=== PATIENT | male | born 1980 | race Caucasian/White ===

== ENCOUNTER 2017-03-12 12:26 | Emergency (ER) | payer OTHER ==
[2017-03-12 12:31] VITALS: BP 154/89
--- NOTE | 2017-03-12 14:47 | RAD ---
Indication: Right hand injury. 4 views of the right hand demonstrates no fracture. No other bone or joint abnormality is identified. IMPRESSION: No fracture of the right thumb or second digit is noted.
[2017-03-12] MEDS ORDERED: oxyCODONE/Acetamin 5/325 MG* TAB PO ONE (14:50)
--- NOTE | 2017-03-12 14:56 | ED ---
Upper Extremity Pain - HPI Summary HPI Summary: 36 male presents with complaints of right thumb pain after shutting in a shed door yesterday. Patient admits to swelling, bruising and some loss of ROM due to pain. Admits to tingling intermittently. Denies numbness. States he was unable to sleep due to pain. Took 800mg ibuprofen without relief. Has not tired anything else. Denies wrist or other finger pain. No other injuries or complaints at this time. - History of Current Complaint Chief Complaint: EDExtremityUpper Stated Complaint: PAIN IN HAND Time Seen by Provider: 03/12/17 14:03 Hx Obtained From: Patient Mechanism Of Injury: Blunt Trauma - shut in shed door hinge Onset/Duration: Started Days Ago, Traumatic, Worse Since Timing: Constant Severity Initially: Moderate Severity Currently: Moderate Pain Location: Hand - distal right thumb/lateral posterior hand, Finger - right thumb Character: Dull, Aching Aggravating Factor(s): Movement Associated Signs & Symptoms: Positive: Swelling, Bruising Related History: Dominant Hand Right - Allergies/Home Medications Allergies/Adverse Reactions: Allergies Allergy/AdvReac Type Severity Reaction Status Date / Time Ketorolac Tromethamine Allergy Intermediate Dizziness Verified 03/12/17 12:29 [From Toradol] Sulfa Drugs Allergy Intermediate Hives Verified 03/12/17 12:29 morphine IV AdvReac Mild Rash Uncoded 03/12/17 12:29 PMH/Surg Hx/FS Hx/Imm Hx Endocrine/Hematology History: Denies: Hx Diabetes, Hx Systemic Lupus Erythematosus, Hx Thyroid Disease Cardiovascular History: Denies: Hx Congestive Heart Failure, Hx Hypertension, Hx Pacemaker/ICD, Other Cardiovascular Problems/Disorders Respiratory History: Denies: Hx Asthma, Hx Chronic Obstructive Pulmonary Disease (COPD), Other Respiratory Problems/Disorders GI History: Reports: Hx Irritable Bowel, Hx Jaundice - WITH HEPATITIS C FLARE UPS, Other GI Disorders - GALL BLADDER ISSUES, CHOLECYSTECTOMY 2012 Denies: Hx Ulcer History: Denies: Hx Dialysis, Hx Renal Disease Musculoskeletal History: Reports: Other Musculoskeletal History - RIGHT KNEE PAIN FOR SEVERAL YEARS Denies: Hx Rheumatoid Arthritis Sensory History: Reports: Hx Contacts or Glasses - GLASSES Denies: Hx Cataracts, Hx Eye Injury, Hx Eye Prosthesis, Hx Glaucoma, Hx Macular Degeneration, Hx Vision Problem, Hx Deafness, Hx Hearing Aid, Hx Hearing Problem, Other Sensory Impairments Opthamlomology History: Reports: Hx Contacts or Glasses - GLASSES Denies: Hx Cataracts, Hx Eye Injury, Hx Eye Prosthesis, Hx Glaucoma, Hx Macular Degeneration, Hx Vision Problem, Other Sensory Impairments Neurological History: Reports: Other Neuro Impairments/Disorders - Hx bipolar disorder Psychiatric History: Reports: Hx Anxiety - CONTROLLED WITH MEDS, Hx Depression - "not really", Hx Panic Disorder, Hx Inpatient Treatment - [facility] with relapse and again February 2013 in [place], Hx Bipolar Disorder - [facility]osp at [place] Aug 2011 for 5 days, Hx Substance Abuse - [facility] [place] rel[place] and hosp again in february 2013 - Cancer History Hx Chemotherapy: No - Surgical History Surgery Procedure, Year, and Place: Cholecystectomy 05/10/13- [facility]; RIGHT KNEE SURGERY, 07/2015 Hx Anesthesia Reactions: No - Immunization History Date of Tetanus Vaccine: Unk Date of Influenza Vaccine: Fall 2011 Infectious Disease History: Yes Infectious Disease History: Denies: Hx Clostridium Difficile, Hx Hepatitis, Hx Human Immunodeficiency Virus (HIV), Hx Shingles, Hx Tuberculosis, Traveled Outside the [place] in Last 30 Days - Family History Known Family History: Positive: None - Social History Alcohol Use: None Substance Use Type: Reports: None Substance Use Comment - Amount & Last Used: last used 2011 Smoking Status (MU): Heavy Every Day Tobacco Smoker Type: Cigarettes Amount Used/How Often: 1/2 PK PER DAY Length of Time of Smoking/Using Tobacco: 15 YRS Have You Smoked in the Last Year: Yes Review of Systems Constitutional: Negative Cardiovascular: Negative Respiratory: Negative Positive: Arthralgia, Myalgia, Decreased ROM, Edema - right thumb, posterior hand Positive: Bruising - right thumb/posterior hand Neurological: Negative All Other Systems Reviewed And Are Negative: Yes Physical Exam Triage Information Reviewed: Yes Vital Signs On Initial Exam: Initial Vitals Temp Pulse Resp BP Pulse Ox 98.4 F 112 16 154/89 99 03/12/17 12:29 03/12/17 12:29 03/12/17 12:29 03/12/17 12:29 03/12/17 12:29 Vital Signs Reviewed: Yes Appearance: Positive: Well-Appearing, No Pain Distress, Well-Nourished Skin: Positive: Warm, Skin Color Reflects Adequate Perfusion, Dry, Erythema @ - and ecchymosis of right thumb and posteriod lateral hand. no open wounds. skin intact. Eyes: Positive: Normal ENT: Positive: Normal ENT inspection, Hearing grossly normal Neck: Positive: Supple, Nontender Respiratory/Lung Sounds: Positive: Clear to Auscultation, Breath Sounds Present Cardiovascular: Positive: Normal, RRR, Pulses are Symmetrical in both Upper and Lower Extremities - 2+ radial bilaterally Musculoskeletal: Positive: Limited @ - ROM at right thumb due to pain, is able to move, Pain @ - right thumb, posterior hand, Edema Right - thumb/posterior hand, Other - no crepitus or step off noted. edema and contusion over right thumb and hand. Negative: Interruption @ Neurological: Positive: Normal, Sensory/Motor Intact - sensation intact, Alert, Oriented to Person Place, Time, CN Intact II-III, Reflexes Intact, NV Bundle Intact Distally, Normal Gait Psychiatric: Positive: Normal Diagnostics - Vital Signs Vital Signs Temp Pulse Resp BP Pulse Ox 03/12/17 12:32 98.4 F 112 16 154/89 100 03/12/17 12:29 98.4 F 112 16 154/89 99 - Laboratory Lab Statement: Any lab studies that have been ordered have been reviewed, and results considered in the medical decision making process. - Radiology right hand Xray Interpretation: No Acute Changes - 4 views of the right hand demonstrates no fracture. No other bone or joint abnormality is identified. Radiology Interpretation Completed By: Radiologist Course/Dx - Course Course Of Treatment: given pain medication while in ED. X-ray obtained and negative. Given brace and pain management. Ice and rest. follow up ortho if pain persists or worsens. Aware of worsening signs and symptoms. - Diagnoses Differential Diagnosis/HQI/PQRI: Positive: Arthritis, Contusion, Fracture ( Closed), Hematoma, Strain, Sprain Provider Diagnoses: Contusion of right thumb, Strain of right thumb Discharge - Discharge Plan Condition: Stable Disposition: HOME Prescriptions: HYDROcodone/ACETAMIN 5-325 MG* [[place] 5-325 TAB*] 1 tab PO Q6H PRN #3 tab MDD 2 PRN Reason: Pain Ibuprofen TAB* [Motrin TAB* 800 MG] 800 mg PO Q6H #20 tab Patient Education Materials: Finger Sprain (ED), Contusion in Adults (ED) Forms: *Work Release Referrals: Bari Kelly NP [Primary Care Provider] - Charley Golden MD [Medical Doctor] - Additional Instructions: Take ibuprofen 800mg for pain and inflammation. If this is not working try taking Naproxen/Aleve. Ice your thumb 20 minutes on and 20 minutes off multiple times daily. Rest and wear brace until symptoms improve. Follow up with PCP and orthopedics if pain persists. Further imaging may be needed.
[2017-03-12] MEDS ORDERED: HYDROcodone/ACETAMIN 5-325 MG* 1 TAB PO ONE (15:03)
== END 2017-03-12 15:40 | disposition home or self-care (01) ==
LOC: ED 12:26
DX: S60.011A Contusion of right thumb without damage to nail, initial encounter (principal); S56.011A Strain of flexor muscle, fascia and tendon of right thumb at forearm level, initial encounter; W23.0XXA Caught, crushed, jammed, or pinched between moving objects, initial encounter; Y93.9 Activity, unspecified; Y92.9 Unspecified place or not applicable; F17.210 Nicotine dependence, cigarettes, uncomplicated
CPT/HCPCS: 99282; A9270-GY

== ENCOUNTER 2017-04-28 06:13 | Day surgery (SDC) | payer OTHER ==
--- NOTE | 2017-04-22 22:52 | HP ---
HISTORY AND PHYSICAL: DATE OF OFFICE VISIT: 04/22/17 DATE OF SURGERY: 04/28/17 SURGEON: Charley Golden MD PROCEDURE: Left knee arthroscopy. CHIEF COMPLAINT: Left knee pain. HISTORY OF PRESENT ILLNESS: Mr. Adan is a 36-year-old gentleman with continued left knee pain. He has had a 9/10 aching pain along the medial joint line as well as medial parapatellar region. H is pain has increased by standing all day, lifting heavy item, and prolonged working. Pain is decre ased when he rests. PAST MEDICAL HISTORY: 1. Bipolar disorder. 2. Anxiety. 3. Hypertension. PAST SURGICAL HISTORY: 1. Right knee arthroscopy with medial plica excision. 2. Cholecystectomy. MEDICATIONS: 1. Lexapro 20 mg 1 tab daily. 2. Chantix 0.5 mg 1 tablet daily x3 days. 3. Ibuprofen 800 mg 1 tablet q.8 hours as needed for pain. 4. Seroquel 400 mg. ALLERGIES: SULFA ANTIBIOTICS. FAMILY HISTORY: Father has heart disease and history of colon and bladder cancer. Mother's side has a history of diabetes. SOCIAL HISTORY: The patient lives in [place]. He smokes half a pack cigarettes x15 years. No alc ohol or recreational drug use. REVIEW OF SYSTEMS: General: The patient denies any fevers, chills, or night sweats. No known anes thesia problems. HEENT: The patient denies any headaches, lightheadedness, or syncopal episodes. Integumentary: The patient denies any abrasions, lesions, or open wounds. Cardio: The patient den ies any chest pain, palpitations, or edema. Pulmonary: The patient denies any shortness of breath with exertion, chronic cough, or COPD. GI: The patient denies any nausea, vomiting, diarrhea, or c onstipation. : The patient denies any nocturia, urinary frequency, urinary urgency, or history o f UTIs. MUSCULOSKELETAL: The patient admits to left knee pain. Neuro: The patient denies any par esthesias, numbness, or history of seizures or stroke. Endocrine: The patient denies any diabetes or thyroid issues. PHYSICAL EXAMINATION GENERAL: The patient is awake, alert, and oriented, in no acute distress. Appropriate mood and affe ct. PULMONARY: Lungs are clear to auscultation in all lung macdonald. No wheezes, rales, or rhonchi. CARDIO: Regular rate and rhythm. Normal S1 and S2. No appreciable S3 or S4. No murmurs, rubs, or gallops. No edema. ABDOMEN: Positive bowel sounds in all 4 quadrants. Soft and nontender to palpation. MUSCULOSKELETAL: Left lower extremity, the patient's skin is intact. No abrasions or open wounds. Mild effusion at the knee joint with tenderness to palpation along the medial joint line and medial parapatellar region. The patient has full extension to 0 and flexion to 120 degrees. No varus or valgus instability. He has a positive Apley's, negative Maribell's. 5/5 ankle dorsiflexion and alejandro ntarflexion. Full sensation to light touch and 2+ dorsalis pedis pulse. IMPRESSION: Medial plica with some synovitis without an obvious meniscal tear. PLAN: The patient will undergo an arthroscopy for removal of plica on 04/28/17. He will follow up i n the office in 10 to 14 days postop for suture removal. DEBORA HOLLOWAY [id number]/[facility] #: [id number]
[~2017-04-28 06:13] MED LIST: Dexamethasone IV* 4 MG/ML 1 ML (4 MG) IV SLOW PU ONE; Dexamethasone IV* 4 MG/ML 1 ML (4 MG) ONE; Famotidine IV* 10 MG/ML 2 ML (20 mg) IV ONE; Famotidine IV* 10 MG/ML 2 ML (20 mg) ONE; ceFAZolin 2 GM PREMIX(*) 2 GM/50 ML BAG IVPB ONE
[2017-04-28] MEDS ORDERED: Lidocaine 2% PF * 5 ML VIAL ONE (06:59)
[2017-04-28] MEDS ORDERED: Propofol* 10 MG/ML 20 ML BTL IV PUSH ONE (06:59)
[2017-04-28] MEDS ORDERED: fentaNYL* 50 MCG/ML 2 ML VIAL (100 MCG VIAL) ONE ×3 (06:59→08:35)
[2017-04-28] MEDS ORDERED: Midazolam* 1 MG/ML 5 ML VIAL (5 MG) ONE (07:00)
[2017-04-28] MEDS ORDERED: EPINEPHrine AMP 1 MG/ML ONE (07:11)
[2017-04-28] MEDS ORDERED: methylPREDNISolone ACETATE 80* 80 MG/ML 1 ML VIAL ONE (07:11)
[2017-04-28] MEDS ORDERED: Bupivacaine 0.5% SDV PF* 30 ML VIAL ONE (07:12)
[2017-04-28] MEDS ORDERED: HYDROcodone/ACETAMIN 5-325 MG* 1 TAB PO PRN (07:12)
[2017-04-28] MEDS ORDERED: oxyCODONE/Acetamin 5/325 MG* TAB PO PRN (07:12)
[2017-04-28] MEDS ORDERED: PROCHLORPERAZINE INJ 5 MG/ML 2 ML VIAL IV PRN (07:12)
[2017-04-28] MEDS ORDERED: Ondansetron INJ* 2 MG/ML VIAL ONE (07:39)
[2017-04-28] MEDS: fentaNYL* 50 MCG/ML 2 ML VIAL (100 MCG VIAL) IV PRN ×2 (08:36→08:56)
[2017-04-28 09:16] VITALS: BP 134/88
--- NOTE | 2017-04-29 07:31 | OP ---
OPERATIVE REPORT: DATE OF OPERATION: 04/28/17 DATE OF : 84 SURGEON: Charley Golden MD BULK STATION OPERATOR: DEBORA Miller Ms.'s help was used throughout the procedure for preparation of the leg, holding instrument s, wound retraction, manipulation of the leg, and wound closure. ANESTHESIOLOGIST: Dr. Sprague. ANESTHESIA: General. PRE-OP DIAGNOSIS: Left knee pain with medial plica. POST-OP DIAGNOSES: Left knee medial plica, lateral meniscal tear. OPERATIVE PROCEDURE: Left knee arthroscopy with partial lateral meniscectomy and medial plica excis ion. INDICATIONS: Mr. Adan is a 36-year-old gentleman with chronic left knee pain. He had tenderness to palpation and pain along the medial parapatellar region. MRI showed medial plica. The patient had continued pain despite conservative treatment and elected to have left knee arthroscopy with med ial plica excision. Informed consent was obtained from the patient. He understood the risks of the surgery included, bu t were not limited to, bleeding, infection, damage to nearby structures, continued pain, need for fu rther surgery, stroke, heart attack, blood clot, and . He wished to proceed. ESTIMATED BLOOD LOSS: Less than 25 cc. SPECIMEN: None. COMPLICATIONS: None. INTRAOPERATIVE FINDINGS: Intraoperatively, the patient was noted to have a radial type tear along t he posterior horn of the lateral meniscus. This involved the white-white and white-red zone. The p atient was also noted to have a medial plica that impinged with patellofemoral range of motion. No significant cartilage changes were noted. There was some grade 1 and 2 Outerbridge cartilage change s in the patellofemoral compartment. DESCRIPTION OF PROCEDURE: Mr. Adan was identified in the preanesthesia unit. His left lower ext remity was marked as the correct operative side. Informed consent was signed and placed in the brandon t. The patient was taken to the operating room and placed under general anesthesia. Left lower ext remity was prepped and draped in the usual sterile fashion. Preop time-out was made to correctly id entify the patient's side and site. Appropriate perioperative antibiotics were given within 1 hour of incision. A 0.5-cm anterolateral portal incision was made with a 15 blade and carried down to the capsule. Tr ocar was introduced. As soon as the light and water sources were turned on, there was immediate vis ualization of the suprapatellar pouch. A tour of the knee joint was performed. Suprapatellar pouch had no obvious abnormality. Patellofemoral compartment had some slight grade 1 and 2 Outerbridge ca rtilage changes. Medial gutter showed a plica with some impingement in the patellofemoral compartme nt with range of motion. No loose body. Medial compartment showed no obvious meniscal tear and kary y minimal degenerative changes. ACL appeared to be intact. The knee was placed in a figure-of-4 po sition. Posterior horn of the lateral meniscus had a radial-type tear. No significant cartilage ch kevin within the lateral compartment. Lateral gutter showed no obvious abnormality. Under direct visualization, a medial portal incision was made with a 15-blade. A probe was introduc ed and a second tour of the knee joint was performed. There were no additional findings. Shaver an d radiofrequency ablation wand were used to perform the medial plica excision. There was no further impingement of soft tissue in the patellofemoral compartment during range of motion. Next, a strai ght biter and shaver were used to perform partial lateral meniscectomy along the radial tear at the posterior horn of the lateral meniscus. A smooth border was obtained here. The knee was copiously irrigated with sterile saline. All instruments were carefully removed. An i ntraarticular injection of 80 mg Depo-Medrol and 6 cc 0.25% Marcaine was placed in the knee joint. Sterile Xeroform, 4x4s, and Webril were placed over the incisions. Kris wrap and cold pack were plac ed over this. The patient's anesthesia was reversed without difficulty. He was taken to the PACU in stable condit ion. Intended weightbearing will be weightbearing as tolerated. Intended DVT prophylaxis will be as pirin. [id number]/[facility] #: [id number]
== END 2017-04-28 09:44 | disposition home or self-care (01) ==
LOC: OR 06:13
PROVIDERS: ATTEND Orthopaedic Surgery Adult Reconstructive Orthopaedic Surgery
DX: M67.52 Plica syndrome, left knee (principal); M23.352 Other meniscus derangements, posterior horn of lateral meniscus, left knee; M25.562 Pain in left knee; F31.9 Bipolar disorder, unspecified; F41.9 Anxiety disorder, unspecified; I10 Essential (primary) hypertension; F17.210 Nicotine dependence, cigarettes, uncomplicated; M65.862 Other synovitis and tenosynovitis, left lower leg; Z88.2 Allergy status to sulfonamides
CPT/HCPCS: J0171; J0690; J1040; J1100; J2250; J2405; J2704; J3010

== ENCOUNTER 2017-06-21 13:28 | Day surgery (SDC) | payer OTHER ==
[2017-06-21] MEDS ORDERED: Ondansetron INJ* 2 MG/ML VIAL ONE (16:40)
[2017-06-21] MEDS ORDERED: HYDROmorphone* 1 MG/ML 1 ML SYR ONE (16:40)
[2017-06-21] MEDS ORDERED: HYDROmorphone* 1 MG/ML 1 ML SYR IV ONE ×2 (16:47→17:39)
[2017-06-21] MEDS ORDERED: Ondansetron INJ* 2 MG/ML VIAL IV ONE ×2 (16:47→17:39)
[2017-06-21] MEDS ORDERED: NS 0.9% 1000 ML* 1,000 ML IV ONE (16:47)
[2017-06-21 16:51] LABS: Add Diff/Slide Review? Slide Review Added; Comments Flag Yes; Hematocrit 46 % (42-52); Hemoglobin 15.8 g/dl (14.0-18.0); Mean Corpuscular HGB Conc 35 g/dl (31-36); Mean Corpuscular Hemoglobin 32 pg (27-31); Mean Corpuscular Volume 93 fL (80-94); Red Blood Count 4.94 10^6/ul (4.0-5.4); Red Cell Distribution Width 13 % (10.5-15); White Blood Count 18.1 10^3/ul (3.5-10.8)
[2017-06-21 16:58] LABS: ALT 49 U/L (7-52); Albumin 4.6 g/dL (3.2-5.2); Alkaline Phosphatase 63 U/L (34-104); BUN/Creatinine Ratio 16.9 (8-20); Blood Urea Nitrogen 11 mg/dL (6-24); CO2 Carbon Dioxide 22 mmol/L (22-32); Calcium 9.1 mg/dL (8.6-10.3); Chloride 103 mmol/L (101-111); EGFR African American 180.8 (>60); EGFR Non-African American 140.6 (>60); Glucose 92 mg/dL (70-100); Lipase 13 U/L (11.0-82.0); Sodium 133 mmol/L (133-145); Total Protein 7.6 g/dL (6.4-8.9)
[2017-06-21 17:10] LABS: Anion Gap 8 mmol/L (2-11)
[2017-06-21] MEDS ORDERED: Bupivacaine 0.25% W/EPI* 50 ML VIAL ONE (18:24)
[2017-06-21] MEDS ORDERED: ceFOXitin 2 GM IVPREMIX* 2 GM/50 ML BAG ONE (18:29)
[2017-06-21] MEDS ORDERED: oxyCODONE/Acetamin 5/325 MG* TAB PO PRN (18:35)
[2017-06-21] MEDS ORDERED: Propofol* 10 MG/ML 20 ML BTL IV PUSH ONE (18:36)
[2017-06-21] MEDS ORDERED: Succinylcholine* 20 MG/ML 10 ML VIAL ONE ×2 (18:36→18:38)
[2017-06-21] MEDS ORDERED: Midazolam* 1 MG/ML 5 ML VIAL (5 MG) ONE (18:36)
[2017-06-21] MEDS ORDERED: Atracurium* 10 MG/ML 10 ML VIAL ONE (18:36)
[2017-06-21] MEDS ORDERED: fentaNYL* 50 MCG/ML 2 ML VIAL (100 MCG VIAL) ONE (18:36)
[2017-06-21] MEDS ORDERED: HYDROcodone/ACETAMIN 5-325 MG* 1 TAB PO PRN (19:17)
[2017-06-21] MEDS ORDERED: DiMENhydriNATE IV* 50 MG/ML VIAL IV PUSH PRN (19:17)
[2017-06-21] MEDS ORDERED: Ondansetron INJ* 2 MG/ML VIAL IV PRN (19:17)
[2017-06-21] MEDS ORDERED: fentaNYL* 50 MCG/ML 2 ML VIAL (100 MCG VIAL) IV PRN (19:17)
[2017-06-21] MEDS ORDERED: oxyCODONE TAB* 5 MG TAB PO PRN (19:17)
[2017-06-21] MEDS ORDERED: Neostigmine Methylsulfate* 2 MG/2 ML SYRINGE ONE ×2 (19:28→19:33)
[2017-06-21] MEDS ORDERED: Glycopyrrolate IV* 0.2 MG/ML 1 ML VIAL ONE ×2 (19:28→19:33)
[2017-06-21 20:51] VITALS: BP 142/91
--- NOTE | 2017-06-22 01:55 | HP ---
CC: Forest Beltre MD; Bari Kelly NP * HISTORY AND PHYSICAL: DATE OF ADMISSION: 06/21/17 CHIEF COMPLAINT: Abdominal pain. HISTORY OF PRESENT ILLNESS: The patient is a 36-year-old male in his usual state of health, had onset at 0100 of pain in the abdomen, principally in the right lower quadrant. This has been accompanied by an episode of vomiting and some nausea, anorexia. No diarrhea. No fever. No chills. There has been no accident, injury or trauma. No blood in the stool or urine. He does not have a history of anything like this before. PAST MEDICAL HISTORY: Reveals that he had hepatitis C from being an IV drug abuser in the past. He has been clean for 5 years now and states that they have been following him along and he has cleared the hepatitis C and is completely disease free at present. PAST SURGICAL HISTORY: Laparoscopic cholecystectomy done in 2012 and bilateral knee scopes, most recently done just 2 months ago. MEDICATIONS: At home include: 1. Lexapro 20 mg h.s. 2. Seroquel 400 mg h.s. 3. He also takes ibuprofen p.r.n. ALLERGIES: Include TORADOL, SULFA, and MORPHINE. FAMILY HISTORY: Benign. No bleeding tendencies or anesthesia reactions. SOCIAL HISTORY: He is a former IV drug abuser. He has been clean for 5 years. He is not . 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 He does some heavy lifting. He has had no accident or injury. He has not eaten anything unusual. No one else in the family is similarly ill. He is half a pack a day smoker. Does not drink or use any drugs at present. REVIEW OF SYSTEMS: No cardiac disease. No chest pain, heart pain, angina pain or the like. No emphysema, bronchitis, or chronic lung disease. No kidney stones or other disease. No hepatobiliary disease. Of late, he of course has the history of cholecystectomy and the resolved hepatitis C. He has no GI history. No Crohn's disease, colitis, irritable bowel, spastic colon, and no problems with diarrhea, blood in the stool or anything of the sort. He has no neuromuscular issues. He does have some anxiety and depression. PHYSICAL EXAMINATION GENERAL: He is a well-developed, well-nourished overweight male, consistent with stated age. VITAL SIGNS: Temperature is 98.1, pulse 78 and regular. Respirations 22 and unlabored. O2 saturation 95%. Blood pressure 142/93. NECK: Supple without any adenopathy. LUNGS: Clear bilaterally. HEART: Regular without any abnormal sounds. ABDOMEN: Obese and soft, and exquisite McBurney point tenderness with Rovsing sign, percussion tenderness, referred rebound tenderness. No real guarding. No palpable masses. No hernias. Previous incisions from laparoscopic surgery are well healed. EXTREMITIES: Well perfused and without edema. SKIN: Warm and well perfused. He is not diaphoretic. LABORATORY DATA: Show white count of 18,000, hemoglobin 15.8, platelet count 170,000. Chemistries show normal electrolytes, normal BUN, normal liver chemistries, normal lipase. IMPRESSION: A 36-year-old male with signs and symptoms consistent with acute appendicitis. I discussed the situation with him, he understands the potential diagnostic uncertainties of appendicitis and the potential for gaining a few percentage points of accuracy with a CT scan, but that at present I would estimate 90% likelihood of this being acute appendicitis based on the history and physical alone and we talked about the pros and cons of proceeding with CT scan and he is comfortable going to the operating room for laparoscopic appendectomy and we will do so this evening as the operative schedule permits. [id number]/[facility] #: [id number] ANDREA
--- NOTE | 2017-06-22 16:46 | OP ---
CC: Bari Kelly NP * DATE OF OPERATION: 06/21/17 - [facility] DATE OF : 84 SURGEON: Froest Beltre MD CONTINUOUS LINTER DRIER OPERATOR: None. ANESTHESIOLOGIST: Dr. Street. ANESTHESIA: General anesthetic, local infiltration. PRE-OP DIAGNOSIS: Acute appendicitis. POST-OP DIAGNOSIS: Acute appendicitis. OPERATIVE PROCEDURE: Laparoscopic appendectomy. DESCRIPTION OF PROCEDURE: The patient was supine in the operating room table after adequate general anesthetic, compression stocking, Tonya Hugger warmer and intravenous antibiotics, the abdomen was prepped with antiseptic, draped in a sterile fashion. Local infiltrate of anesthesia was administered. A small umbilical incision was created. Blunt port cannula was placed under direct vision. Additional cannulae 5-mm left lower quadrant, left mid abdomen were placed with small stab wounds under direct vision. The appendix was suppurative , but no evidence of gangrene or perforation or abscess. The patient's appendix and the mesoappendix were divided with a single firing of an EndoGIA stapler 60-mm rock cartridge. The appendix was placed in a retrieval bag and brought out through the umbilical site without difficulty. The suture line had a tiny bit of oozing, it was swabbed down and examined for about 5 to 10 minutes and then was nicely hemostatic. The 4 x 4s were retrieved. The appendix was removed through the umbilical site. The cannulae were removed. Pneumoperitoneum allowed to escape. Umbilical fascia was closed with 0-Polysorb and the skin with 5-0 Polysorb in all cases, followed by Steri-Strips for the smaller incisions and a gauze dressing for the larger incision. He was awakened and brought to Recovery in good condition. No complications. No drains. Pathologic specimen is appendix. Sponge and instrument counts correct. Estimated blood loss is 20 mL. [id number]/[facility] #: [id number] [facility]
--- NOTE | 2017-06-24 12:57 | ED ---
I, Oh,Soohpetr, scribed for Jaime Gutierrez MD on 06/21/17 at 1548 . Abdominal Pain/Male - HPI Summary HPI Summary: This 36 y/o male presents to ED for acute onset of RUQ pain since 0100 AM. Positive n/v, decreased appetite. Negative dysuria. Normal BM this morning. Pt last ate turkey burger at 1800 PM last evening. PMHx includes cholecystectomy, IBS, IVDA, hep C, and laproscopic surgery bilat knees. Primary care involves FRANCISCO Lyles. - History of Current Complaint Chief Complaint: EDAbdPain Stated Complaint: LOWER RT ABD PAIN Time Seen by Provider: 06/21/17 15:34 Hx Obtained From: Patient, Medical Records Onset/Duration: Sudden Onset, Still Present Pain Intensity: 9 Pain Scale Used: 0-10 Numeric Location: Discrete At: RLQ Radiates: No Character: Dull Aggravating Factor(s): Nothing Alleviating Factor(s): Nothing Associated Signs And Symptoms: Positive: Decreased Appetite, Nausea, Vomiting. Negative: Fever, Urinary Symptoms, Diarrhea - Allergies/Home Medications Allergies/Adverse Reactions: Allergies Allergy/AdvReac Type Severity Reaction Status Date / Time Ketorolac Tromethamine Allergy Intermediate Dizziness Verified 04/28/17 06:25 [From Toradol] Sulfa Drugs Allergy Intermediate Hives Verified 04/28/17 06:25 morphine IV AdvReac Mild Rash Uncoded 04/28/17 06:25 PMH/Surg Hx/FS Hx/Imm Hx Endocrine/Hematology History: Denies: Hx Diabetes, Hx Systemic Lupus Erythematosus, Hx Thyroid Disease Cardiovascular History: Denies: Hx Congestive Heart Failure, Hx Hypertension, Hx Pacemaker/ICD, Other Cardiovascular Problems/Disorders Respiratory History: Denies: Hx Asthma, Hx Chronic Obstructive Pulmonary Disease (COPD), Other Respiratory Problems/Disorders GI History: Reports: Hx Irritable Bowel, Hx Jaundice - WITH HEPATITIS C FLARE UPS, Other GI Disorders - GALL BLADDER ISSUES, CHOLECYSTECTOMY 2012 Denies: Hx Ulcer History: Denies: Hx Dialysis, Hx Renal Disease Musculoskeletal History: Reports: Other Musculoskeletal History - RIGHT KNEE PAIN FOR SEVERAL YEARS, CORRECTED WITH SURGERY Denies: Hx Rheumatoid Arthritis Sensory History: Reports: Hx Contacts or Glasses - GLASSES Denies: Hx Cataracts, Hx Eye Injury, Hx Eye Prosthesis, Hx Glaucoma, Hx Macular Degeneration, Hx Vision Problem, Hx Deafness, Hx Hearing Aid, Hx Hearing Problem, Other Sensory Impairments Opthamlomology History: Reports: Hx Contacts or Glasses - GLASSES Denies: Hx Cataracts, Hx Eye Injury, Hx Eye Prosthesis, Hx Glaucoma, Hx Macular Degeneration, Hx Vision Problem, Other Sensory Impairments Neurological History: Reports: Other Neuro Impairments/Disorders - Hx bipolar disorder Psychiatric History: Reports: Hx Anxiety - CONTROLLED WITH MEDS, Hx Depression - "not really"MORE ANXIETY, BIPOLAR HX, Hx Panic Disorder, Hx Inpatient Treatment - [facility] Nov with relapse and again February 2013 in [place], Hx Bipolar Disorder - Hosp at [place] Aug 2011 for 5 days, Hx Substance Abuse - [facility] hosp [place] rel[place] and hosp again in february 2013 - Cancer History Hx Chemotherapy: No - Surgical History Surgery Procedure, Year, and Place: Cholecystectomy 05/10/13- [facility] – [place];. RIGHT KNEE SURGERY, 07/2015, [facility] [place] Hx Anesthesia Reactions: No - Immunization History Date of Tetanus Vaccine: Unk Date of Influenza Vaccine: Fall 2011 Infectious Disease History: Yes Infectious Disease History: Reports: Hx Hepatitis - HX OF HEPATITIS C, CURRENTLY UNDETECTABLE Denies: Hx Clostridium Difficile, Hx Human Immunodeficiency Virus (HIV), Hx Shingles, Hx Tuberculosis, Traveled Outside the [place] in Last 30 Days - Family History Known Family History: Positive: Cardiac Disease, Diabetes, Other - Colon and bladder CA to father - Social History Alcohol Use: None Substance Use Type: Reports: None Substance Use Comment - Amount & Last Used: last used 2011 Smoking Status (MU): Heavy Every Day Tobacco Smoker Type: Cigarettes Amount Used/How Often: 1/2 PK PER DAY Length of Time of Smoking/Using Tobacco: 15 YEARS Have You Smoked in the Last Year: Yes Review of Systems Negative: Fever Positive: Abdominal Pain, Vomiting, Nausea. Negative: Diarrhea Negative: dysuria All Other Systems Reviewed And Are Negative: Yes Physical Exam Triage Information Reviewed: Yes Vital Signs On Initial Exam: Initial Vitals Temp Pulse Resp BP Pulse Ox 98.4 F 89 16 142/95 98 06/21/17 13:34 06/21/17 13:34 06/21/17 13:34 06/21/17 13:34 06/21/17 13:34 Vital Signs Reviewed: Yes Appearance: Positive: Well-Appearing, Pain Distress Skin: Positive: Warm, Skin Color Reflects Adequate Perfusion, Dry Head/Face: Positive: Normal Head/Face Inspection Eyes: Positive: Normal ENT: Positive: Normal ENT inspection Neck: Positive: Supple, Nontender Respiratory/Lung Sounds: Positive: Clear to Auscultation, Breath Sounds Present Cardiovascular: Positive: RRR, Pulses are Symmetrical in both Upper and Lower Extremities Abdomen Description: Positive: Other: - Positive rebound tenderness. Positive Rovsing sign. RLQ tenderness Musculoskeletal: Positive: Normal Neurological: Positive: Normal Psychiatric: Positive: Affect/Mood Appropriate AVPU Assessment: Alert Diagnostics - Vital Signs Vital Signs Temp Pulse Resp BP Pulse Ox 06/21/17 15:12 98.1 F 93 20 133/89 98 06/21/17 13:36 98.4 F 89 16 142/95 98 06/21/17 13:34 98.4 F 89 16 142/95 98 - Laboratory Lab Results: Lab Results 06/21/17 06/21/17 06/21/17 Range/Units 16:27 16:27 16:27 WBC 18.1 H (3.5-10.8) 10^3/ul RBC 4.94 (4.0-5.4) 10^6/ul Hgb 15.8 (14.0-18.0) g/dl Hct 46 (42-52) % MCV 93 (80-94) fL MCH 32 H (27-31) pg MCHC 35 (31-36) g/dl RDW 13 (10.5-15) % Plt Count 170 (150-450) 10^3/ul MPV Not Reportable Neut % (Auto) 82.5 (38-83) % Lymph % (Auto) 11.9 L (25-47) % [place] % (Auto) 3.9 (1-9) % Eos % (Auto) 1.1 (0-6) % Baso % (Auto) 0.6 (0-2) % Absolute Neuts (auto) 15.0 H (1.5-7.7) 10^3/ul Absolute Lymphs (auto) 2.2 (1.0-4.8) 10^3/ul Absolute Monos (auto) 0.7 (0-0.8) 10^3/ul Absolute Eos (auto) 0.2 (0-0.6) 10^3/ul Absolute Basos (auto) 0.1 (0-0.2) 10^3/ul Absolute Nucleated RBC 0.02 10^3/ul Nucleated RBC % 0.1 Sodium 133 (133-145) mmol/L Potassium TNP Chloride 103 (101-111) mmol/L Carbon Dioxide 22 (22-32) mmol/L Anion Gap 8 (2-11) mmol/L BUN 11 (6-24) mg/dL Creatinine 0.65 L (0.67-1.17) mg/dL Est GFR ( Amer) 180.8 (>60) Est GFR (Non-Af Amer) 140.6 (>60) BUN/Creatinine Ratio 16.9 (8-20) Glucose 92 (70-100) mg/dL Lactic Acid 1.6 (0.5-2.0) mmol/L Calcium 9.1 (8.6-10.3) mg/dL Total Bilirubin 0.50 (0.2-1.0) mg/dL AST TNP ALT 49 (7-52) U/L Alkaline Phosphatase 63 (34-104) U/L C-Reactive Protein 15.30 H (< 5.00) mg/L Total Protein 7.6 (6.4-8.9) g/dL Albumin 4.6 (3.2-5.2) g/dL Globulin 3.0 (2-4) g/dL Albumin/Globulin Ratio 1.5 (1-3) Lipase 13 (11.0-82.0) U/L 06/21/17 Range/Units 17:22 WBC (3.5-10.8) 10^3/ul RBC (4.0-5.4) 10^6/ul Hgb (14.0-18.0) g/dl Hct (42-52) % MCV (80-94) fL MCH (27-31) pg MCHC (31-36) g/dl RDW (10.5-15) % Plt Count (150-450) 10^3/ul MPV Neut % (Auto) (38-83) % Lymph % (Auto) (25-47) % [place] % (Auto) (1-9) % Eos % (Auto) (0-6) % Baso % (Auto) (0-2) % Absolute Neuts (auto) (1.5-7.7) 10^3/ul Absolute Lymphs (auto) (1.0-4.8) 10^3/ul Absolute Monos (auto) (0-0.8) 10^3/ul Absolute Eos (auto) (0-0.6) 10^3/ul Absolute Basos (auto) (0-0.2) 10^3/ul Absolute Nucleated RBC 10^3/ul Nucleated RBC % Sodium (133-145) mmol/L Potassium 3.6 Chloride (101-111) mmol/L Carbon Dioxide (22-32) mmol/L Anion Gap (2-11) mmol/L BUN (6-24) mg/dL Creatinine (0.67-1.17) mg/dL Est GFR ( Amer) (>60) Est GFR (Non-Af Amer) (>60) BUN/Creatinine Ratio (8-20) Glucose (70-100) mg/dL Lactic Acid (0.5-2.0) mmol/L Calcium (8.6-10.3) mg/dL Total Bilirubin (0.2-1.0) mg/dL AST 24 ALT (7-52) U/L Alkaline Phosphatase (34-104) U/L C-Reactive Protein (< 5.00) mg/L Total Protein (6.4-8.9) g/dL Albumin (3.2-5.2) g/dL Globulin (2-4) g/dL Albumin/Globulin Ratio (1-3) Lipase (11.0-82.0) U/L Result Diagrams: 06/21/17 16:27 06/21/17 17:22 Lab Statement: Any lab studies that have been ordered have been reviewed, and results considered in the medical decision making process. Abdominal Pain Fem Course/Dx - Course Course Of Treatment: Dr. Beltre (Surgery) at 1701 PM. Pt will be evaluated in ED. After examination, Dr. Beltre agrees that clinical findings indicate appendicitis. Pt will be admitted to OR. - Diagnoses Provider Diagnoses: Appendicitis - Provider Notifications Discussed Care Of Patient With: Forest Beltre - Will evaluate pt in ED. No CT necessary right now Time Discussed With Above Provider: 17:01 Instructed by Provider To: Will See In ED Discharge - Discharge Plan Condition: Stable Disposition: ADMITTED TO Health system documentation as recorded by the Ramiro joshi Soohyun accurately reflects the service I personally performed and the decisions made by Matt caldera Richard L, MD.
== END 2017-06-21 21:25 | disposition short-term general hospital (02) ==
LOC: ED 13:28 → OR 18:24
PROVIDERS: ATTEND Internal Medicine
DX: K35.80 Unspecified acute appendicitis (principal); E66.9 Obesity, unspecified; F17.210 Nicotine dependence, cigarettes, uncomplicated; F31.9 Bipolar disorder, unspecified; Z88.6 Allergy status to analgesic agent; Z88.5 Allergy status to narcotic agent; Z88.2 Allergy status to sulfonamides
CPT/HCPCS: 36415; 80053; 83605; 83690; 85025; 86140; 88304; J0330; J0694; J1170; J2250; J2405; J2704; J3010

== ENCOUNTER 2017-10-25 12:12 | Emergency (ER) | payer OTHER ==
[2017-10-25 14:06] VITALS: BP 139/97
--- NOTE | 2017-10-25 14:49 | RAD ---
INDICATION: Distal radial pain COMPARISON: None TECHNIQUE: AP, lateral, and oblique views were obtained. FINDINGS: The bony structures, joint spaces, and soft tissues are normal for age. IMPRESSION: NEGATIVE EXAMINATION. IF THERE IS PERSISTENT PAIN, SUGGEST FOLLOW-UP IN 7-10.
--- NOTE | 2017-10-25 14:54 | UC ---
Hand/Wrist HPI - HPI Summary HPI Summary: 37 y/o male with h/o drug addiction, IVDU, none x years, states increased pain, swelling, numbness right hand into 2-5 fingers, extending into right forearm. 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 motrin no relief. - History Of Current Complaint Chief Complaint: UCUpperExtremity Stated Complaint: RIGHT HAND PAIN Time Seen by Provider: 10/25/17 14:01 Hx Obtained From: Patient ?: No Onset/Duration: Gradual Onset, Lasting Weeks Severity Initially: Mild Severity Currently: Moderate - Allergies/Home Medications Allergies/Adverse Reactions: Allergies Allergy/AdvReac Type Severity Reaction Status Date / Time Ketorolac Tromethamine Allergy Intermediate Dizziness Verified 10/25/17 14:06 [From Toradol] Sulfa Drugs Allergy Intermediate Hives Verified 10/25/17 14:06 morphine IV AdvReac Mild Rash Uncoded 10/25/17 14:06 PMH/Surg Hx/FS Hx/Imm Hx Previously Healthy: Yes - Surgical History Surgical History: Yes Surgery Procedure, Year, and Place: Cholecystectomy 05/10/13- [facility] [place]; Appy summer 2016. RIGHT KNEE SURGERY, 07/2015, [facility] [place]; Left knee 2016 [facility] [place] - Family History Known Family History: Positive: None, Cardiac Disease, Diabetes, Other - Colon and bladder CA to father - Social History Alcohol Use: None Substance Use Type: None Substance Use Comment - Amount & Last Used: last used 2011 Smoking Status (MU): Heavy Every Day Tobacco Smoker Type: Cigarettes Amount Used/How Often: 1/2 PK PER DAY Length of Time of Smoking/Using Tobacco: 15 YEARS Have You Smoked in the Last Year: Yes When Did the Patient Quit Smoking/Using Tobacco: using chantix Household Exposure Type: Cigarettes - Immunization History Most Recent Tetanus Shot: Unknown Review of Systems Musculoskeletal: Arthralgia, Decreased ROM, Edema Is Patient Immunocompromised?: No All Other Systems Reviewed And Are Negative: Yes Physical Exam Triage Information Reviewed: Yes Appearance: Well-Appearing, No Pain Distress, Well-Nourished Vital Signs: Initial Vital Signs Temp 98.9 F 10/25/17 13:59 Pulse 88 10/25/17 13:59 Resp 18 10/25/17 13:59 BP 139/97 10/25/17 13:59 Vital Signs Reviewed: Yes Musculoskeletal: Positive: ROM Intact, Strength Limited @ - 5/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 Psychological Exam: Normal Hand/Wrist Course/Dx - Course Course Of Treatment: x-ray negative, likley tendonitis with carpla tunnel, NSAIDs, splint given, rest, ice, elevate, Er with increase swelling, cool hand, follow up with ortho if no improvement within 3-5 days. - Differential Dx/Diagnosis Differential Diagnosis/HQI/PQRI: Burn, Contusion, Fracture, Infection, Tendonitis, Tenosynovitis Provider Diagnoses: tendonitis, carpal tunnel R hand Discharge - Discharge Plan Condition: Good Disposition: HOME Prescriptions: Naproxen [Naproxen 500 mg] 500 mg PO BID #60 tab Patient Education Materials: Paresthesia (ED), Tendinitis (ED) Forms: *Work Release Referrals: Chico Sparks MD [Medical Doctor] - Damián Mojica MD [Medical Doctor] - Bari Kelly NP [Primary Care Provider] - Additional Instructions: - Elevate wrist - Ice as much as possible - Wear brace at all times - If increased swelling, go to ER for further evaluation - Follow up with orthopedics if no improvement within 3-5 days
== END 2017-10-25 15:09 | disposition home or self-care (01) ==
LOC: UCCORT 12:12
DX: G56.01 Carpal tunnel syndrome, right upper limb (principal); M77.9 Enthesopathy, unspecified; Z88.5 Allergy status to narcotic agent; Z88.2 Allergy status to sulfonamides; Z90.49 Acquired absence of other specified parts of digestive tract; F17.210 Nicotine dependence, cigarettes, uncomplicated
CPT/HCPCS: 99213; G0463

== ENCOUNTER 2017-12-17 14:53 | Emergency (ER) | payer OTHER ==
[2017-12-17 17:34] VITALS: BP 133/86
--- NOTE | 2017-12-17 17:46 | UC ---
Respiratory Complaint HPI - HPI Summary HPI Summary: 37 yo male with cough /runny nose/fatigue /fever/chills x about 1 day day just dxed with flu he lives at home with his dad no cp or sob - History of Current Complaint Chief Complaint: UCRespiratory Stated Complaint: FLU SXS Time Seen by Provider: 12/17/17 17:32 Hx Obtained From: Patient Onset/Duration: Gradual Onset, Lasting Hours Timing: Constant Severity Initially: Mild Severity Currently: Moderate Pain Intensity: 4 Pain Scale Used: 0-10 Numeric Character: Cough: Productive Associated Signs And Symptoms: Positive: Fever, Chills, Nasal Congestion - Allergies/Home Medications Allergies/Adverse Reactions: Allergies Allergy/AdvReac Type Severity Reaction Status Date / Time Ketorolac Tromethamine Allergy Intermediate Dizziness Verified 12/17/17 17:29 [From Toradol] Sulfa Drugs Allergy Intermediate Hives Verified 12/17/17 17:29 morphine IV AdvReac Mild Rash Uncoded 12/17/17 17:29 PMH/Surg Hx/FS Hx/Imm Hx Previously Healthy: Yes Psychological History: Anxiety, Depression - Surgical History Surgical History: Yes Surgery Procedure, Year, and Place: Cholecystectomy 05[place]10[place]13[place] [facility] [place]. RIGHT KNEE SURGERY, 07/2015, [facility] [place]; [place] [facility] [place] - Family History Known Family History: Positive: Cardiac Disease, Diabetes, Other - Colon and bladder CA to father - Social History Alcohol Use: None Substance Use Type: None Substance Use Comment - Amount & Last Used: last used 2011 Smoking Status (MU): Heavy Every Day Tobacco Smoker Type: Cigarettes Amount Used/How Often: 1/2 PPD Length of Time of Smoking/Using Tobacco: 15 YEARS Have You Smoked in the Last Year: Yes When Did the Patient Quit Smoking/Using Tobacco: using chantix Household Exposure Type: Cigarettes - Immunization History Most Recent Tetanus Shot: Unknown Review of Systems Constitutional: Fever, Chills, Fatigue Skin: Negative Eyes: Negative ENT: Nasal Discharge, Sinus Congestion Respiratory: Cough Cardiovascular: Negative Gastrointestinal: Negative Genitourinary: Negative Motor: Negative Neurovascular: Negative Musculoskeletal: Myalgia Neurological: Headache Psychological: Negative Is Patient Immunocompromised?: No All Other Systems Reviewed And Are Negative: Yes Physical Exam Triage Information Reviewed: Yes Appearance: Well-Appearing, No Pain Distress, Well-Nourished Vital Signs: Initial Vital Signs Temp 98.4 F 12/17/17 17:30 Pulse 93 12/17/17 17:30 Resp 16 12/17/17 17:30 BP 133/86 12/17/17 17:30 Pulse Ox 98 12/17/17 17:30 Vital Signs Reviewed: Yes Eyes: Positive: Conjunctiva Clear ENT: Positive: Hearing grossly normal, Nasal congestion, Nasal drainage, Uvula midline. Negative: Tonsillar swelling, Tonsillar exudate, Trismus, Muffled voice, Hoarse voice, Dental tenderness Neck: Positive: Supple, Nontender, No Lymphadenopathy Respiratory: Positive: Lungs clear, Normal breath sounds, No respiratory distress, No accessory muscle use Cardiovascular: Positive: RRR, No Murmur Musculoskeletal: Positive: ROM Intact, No Edema Neurological: Positive: Alert Psychological Exam: Normal Skin Exam: Normal UC Diagnostic Evaluation - Laboratory O2 Sat by Pulse Oximetry: 98 - normal/not hypoxic Respiratory Course/Dx - Differential Dx/Diagnosis Provider Diagnoses: influenza Discharge - Discharge Plan Condition: Stable Disposition: HOME Prescriptions: Oseltamivir CAP* [Tamiflu CAP*] 75 mg PO BID #10 cap Patient Education Materials: Influenza (ED) Forms: *Work Release Referrals: Bari Kelly BIOSTATISTICS TEACHER [Primary Care Provider] - If Needed
== END 2017-12-17 17:45 | disposition home or self-care (01) ==
LOC: UCCORT 14:53
DX: J11.1 Influenza due to unidentified influenza virus with other respiratory manifestations (principal); F41.9 Anxiety disorder, unspecified; F32.9 Major depressive disorder, single episode, unspecified; F17.210 Nicotine dependence, cigarettes, uncomplicated; Z88.5 Allergy status to narcotic agent; Z88.2 Allergy status to sulfonamides
CPT/HCPCS: 99212; G0463

== ENCOUNTER 2018-02-18 15:41 | Emergency (ER) | payer OTHER ==
[2018-02-18 17:16] VITALS: BP 132/87
--- NOTE | 2018-02-18 17:32 | UC ---
HPI Febrile Illness - HPI Summary HPI Summary: Starting this morning with vomiting, then myalgias, weakness, headache and chills. No cough or sore throat. - History of Current Complaint Chief Complaint: UCGeneralIllness Time Seen by Provider: 02/18/18 17:15 Hx Obtained From: Patient Onset/Duration: Started Hours Ago - 7 Timing: Constant Initial Severity: Mild Current Severity: Moderate Pain Intensity: 5 Associated Signs and Symptoms: Chills, Headache, Myalgia, Vomiting - Allergy/Home Medications Allergies/Adverse Reactions: Allergies Allergy/AdvReac Type Severity Reaction Status Date / Time ketorolac Allergy Dizziness Verified 02/18/18 17:13 morphine Allergy Rash Verified 02/18/18 17:13 Sulfa (Sulfonamide Allergy Hives Verified 02/18/18 17:13 Antibiotics) PMH/Surg Hx/FS Hx/Imm Hx Psychological History: Bipolar Disorder - Surgical History Surgical History: Yes Surgery Procedure, Year, and Place: Cholecystectomy 05/10/13- [facility] [place]; [place] summer 2016. RIGHT KNEE SURGERY, 07/2015, [facility] [place]; Left knee 2016 [facility] [place] - Family History Known Family History: Positive: Cardiac Disease, Diabetes, Other - Colon and bladder CA to father - Social History Occupation: Employed Full-time Lives: With Family Alcohol Use: None Substance Use Type: None Substance Use Comment - Amount & Last Used: last used 2011 Smoking Status (MU): Heavy Every Day Tobacco Smoker Type: Cigarettes Amount Used/How Often: 1/2 PPD Length of Time of Smoking/Using Tobacco: 15 YEARS Have You Smoked in the Last Year: Yes When Did the Patient Quit Smoking/Using Tobacco: using chantix Household Exposure Type: Cigarettes Cessation Counseling: Patient Advised to Stop - Immunization History Most Recent Tetanus Shot: Unknown Review of Systems Constitutional: Chills, Fatigue Musculoskeletal: Myalgia Neurological: Headache Is Patient Immunocompromised?: No All Other Systems Reviewed And Are Negative: Yes Physical Exam Triage Information Reviewed: Yes Appearance: No Pain Distress, Well-Nourished, Ill-Appearing Vital Signs: Initial Vital Signs Temp 98.4 F 02/18/18 17:09 Pulse 100 02/18/18 17:09 Resp 20 02/18/18 17:09 BP 132/87 02/18/18 17:09 Pulse Ox 97 02/18/18 17:09 Vital Signs Reviewed: Yes Eyes: Positive: Conjunctiva Clear ENT: Positive: Pharynx normal, TMs normal Neck exam: Normal Respiratory Exam: Normal Cardiovascular Exam: Normal Abdomen Description: Negative: Nontender - tender, mild epigastric, McBurney's Point Tenderness, Peritoneal Signs Bowel Sounds: Positive: Present Musculoskeletal Exam: Normal Neurological Exam: Normal Psychological Exam: Normal Skin Exam: Normal Course/Dx - Febrile Illness Differential Diagnoses: Abd. Infection, Fever of Unknown Origin, Sepsis, Viremia - Diagnoses Clinic Provider Diagnoses: Viral syndrome Discharge - Sign-Out/Discharge Documenting (check all that apply): Discharge - Discharge Plan Condition: Stable Disposition: HOME Prescriptions: Prochlorperazine TAB* [Compazine Tab*] 10 mg PO Q8H PRN #10 tab PRN Reason: Nausea/Vomiting Patient Education Materials: Viral Syndrome (ED), Acute Nausea and Vomiting (ED ), Prochlorperazine (By mouth) Forms: *Work Release Referrals: Bari Kelly CONTACT [employer]FFER [Primary Care Provider] - - Billing Disposition and Condition Condition: STABLE Disposition: HOME
== END 2018-02-18 17:43 | disposition home or self-care (01) ==
LOC: UCCORT 15:41
DX: B34.9 Viral infection, unspecified (principal); Z88.5 Allergy status to narcotic agent; Z88.2 Allergy status to sulfonamides; Z88.8 Allergy status to other drugs, medicaments and biological substances; F17.210 Nicotine dependence, cigarettes, uncomplicated
CPT/HCPCS: 99212; G0463

== ENCOUNTER 2018-06-13 13:50 | Emergency (ER) | payer OTHER ==
--- OUTSIDE RECORDS SUMMARY | 2018-06-13 14:07 | XMS REPORT ---
:1980 External Reference #:[id number] Author Organization [facility] Address [address] [place] [address] [place] [address] Phone [phone] Care Team Providers Name Role Phone Anastasiia Patterson MD Primary Care Physician Unavailable Payers Type Date Identification Numbers Payment Provider Subscriber Commercial Policy Number: [id number] [employer] Name: [id number] [address] PayID: [id number] [place] [address] Medigap Part B Expires: 2016 Policy Number: [id number] Medicaid Frederic [employer]an [employer] Name: 1 1 [address] PayID: [id number] [place] [address] Commercial Expires: 2016 Policy Number: [id number] [employer] Name: [id number] [address] PayID: [id number] [place] [address] Problems Date Description Provider Status Onset: 07/21/2015 Arthralgia of the lower leg Charley Golden M.D. Active Onset: 07/21/2015 Knee joint effusion Charley Golden M.D. Active Onset: 08/25/2015 Sprain of medial collateral Charley Golden M.D. Active ligament of left knee, subs Onset: 08/23/2017 Obstructive sleep apnea Queenie Castillo DNP, RN, Active syndrome [employer] Onset: 08/23/2017 Tobacco user Queenie Castillo DNP, RN, Active [employer] Family History Date Family Member(s) Problem(s) Comments General Heart Disease General Diabetes General Cancer Father Hypertension Social History Type Date Description Comments Marital Status Lives With Family [facility] ETOH Use Denies alcohol use Recreational Drug Use Former Drug User Smoking Light tobacco smoker (10 or fewer cigarettes/day) Daily Caffeine Consumes on average 2 cups of regular coffee per day Exercise Type/Frequency Walks dogs 1/2 mile once daily Allergies, Adverse Reactions, Alerts Date Description Reaction Status Severity Comments 04/12/2014 Sulfa Antibiotics active Medications Medication Date Status Form Strength Qnty SIG Indications Ordering Provider Medrol 05/15 Hx TBPK 4mg 21uni as M77.11 Bari ts directed EVERARDO Kelly - on 05/20 Bupropion HCL ER 04/05 Active Tablets 150mg 60tab one F17.210 Bari (Smoking Det) ER 12HR s tablet EVERARDO Kelly once daily x 3 days and then one tablet twice daily Ibuprofen 04/05 Active Tablets 600mg 90tab take one s tablet by EVERARDO Kelly mouth three times a day as needed with food Seroquel 05/16 Active Tablets 200mg 60tab 2 tab by Bari s mouth EVERARDO Kelly every night at bedtime Lexapro 03/11 Active Tablets 20mg 30tab one Bari s tablet EVERARDO Kelly daily Nicotine 04/05 Hx Patches 21mg/24HR 28uni one patch F17.210 24HR ts daily x 6 EVERARDO Kelly - weeks 05/18 Percocet 06/24 Hx Tablets 5-325mg 15tab 1 tab by K35.3 . s mouth Schwna, - every 4 M.D. 06/24 hours as needed Percocet 06/24 Hx Tablets 10-325mg 12tab 1 po q 6 Al. s hr prn Alexsander, - M.D. 06/30 Naproxen 05/13 Hx Tablets 500mg 60tab 1 tablet M25.562 Charley s with food [place], - by mouth M.D. 05/15 twice a day as needed Oxycodone-Acetamino 04/28 Hx Tablets 5-325mg 45tab 1-2 tabs Charley s by mouth [place], - every 4-6 M.D. 05/29 hours needed for pain Amphetamine-Dextroa 02/21 Hx Caps ER 20mg 30cap 1 by F90.0 Bari mphet ER 24HR s mouth Robin, [employer] - every day 05/29 Tramadol HCL 02/21 Hx Tablets 50mg 12tab 1-2 K08.89 Bari s tablets Robin, [employer]CIAL SERVICES AUDITOR - every 8 / hours needed for pain. Chantix 02/21 Hx Tablets 0.5mg 60tab 1 tablet Z72.0 Bari s daily x 3 Robin, [employer] SERVICES AUDITOR days then increase to 1 tablet twice daily Amphetamine-Dextroa 02/07 Hx Caps ER 25mg 30cap One F90.0 Bari mphet ER 24HR s tablet Robin, [employer]CIAL SERVICES AUDITOR - once 02/21 Gabapentin 02/03 Hx Capsules 100mg 30cap take 1 to Bari s 3 Robin, FIN[employer]CIAL SERVICES AUDITOR - capsules 05/29 by mouth at night Dextroamphetamine 01/28 Hx Caps ER 15mg 15cap 1 by F90.0 Bari Sulfate 24HR s mouth Robin, [employer]CIAL SERVICES AUDITOR - every day 02/07 Clonazepam 01/28 Hx Tablets 1mg 30tab /-1 F41.9 Bari s tablet Robin, [employer]CIAL SERVICES AUDITOR twice daily as needed anxiety Adderall XR 12/07 Hx Caps ER 25mg 30cap one by F90.0 Bari 24HR s mouth Robin, [employer]CIAL SERVICES AUDITOR - every in 01/28 morning Adderall XR 11/24 Hx Caps ER 30mg 30cap 1 by F90.0 Bari 24HR s mouth Robin, FIN[employer]CIAL SERVICES AUDITOR - every day 12/07 Adderall XR 09/06 Hx Caps ER 25mg 30cap one by F90.0 Bari 24HR s mouth Robin, FIN[employer]CIAL SERVICES AUDITOR - every in 11/24 morning Oxycodone-Acetamino 08/04 Hx Tablets 5-325mg 14tab take 1 to Z48.89 Dirk phen s 2 tablets Tung, - by mouth M.D. 12/23 every to 8 hours as needed pain Ibuprofen 07/31 Hx Tablets 800mg 60tab 1 tablet Charley s q8 hours [place], as needed M.D. for pain Naproxen 07/09 Hx Tablets 250mg 60tab 1 tab po Ashley /2015 s bid Rodriguez, - M.D. 07/31 Oxycodone-Acetamino 07/09 Hx Tablets 5-325mg 40tab 1 tab by Charley s mouth [place], - every 6-8 M.D. /14 hours needed pain Vicodin 03/07 Hx Tablets 5-500mg 10tab 1-2 s tablets Seda, - po qhs as M.D. 11/21 Tramadol HCL ER Hx 50mg Unknown /0000 - 12/23 Seroquel Hx 400mg Unknown /0000 - 05/16 Immunizations CPT Code Status Date Vaccine Reaction Lot # [id number] Given 09/06/2016 Influenza Virus Vaccine, no reaction noted ... [id number] Quadrivalent, Split Virus, hh Im Use Vital Signs Date Vital Result Comment 05/19/2018 Height 67 inches 5'7" Weight 233.25 lb Heart Rate 72 /min BP Systolic 124 mmHg BP Diastolic 76 mmHg Respiratory Rate 14 /min Body Temperature 98.4 F Pain Level 6 BMI (Body Mass Index) 36.5 kg/m2 05/15/2018 Height 67 inches 5'7" Weight 231.25 lb Heart Rate 83 /min BP Systolic 120 mmHg BP Diastolic 74 mmHg Body Temperature 96.2 F O2 % BldC Oximetry 97 % BMI (Body Mass Index) 36.2 kg/m2 04/11/2018 Height 67 inches 5'7" Weight 229.50 lb Heart Rate 100 /min BP Systolic 130 mmHg BP Diastolic 76 mmHg Body Temperature 98.0 F O2 % BldC Oximetry 98 % BMI (Body Mass Index) 35.9 kg/m2 04/05/2018 Height 67 inches 5'7" Weight 234.00 lb Heart Rate 90 /min BP Systolic 118 mmHg BP Diastolic 76 mmHg Body Temperature 97.1 F O2 % BldC Oximetry 96 % BMI (Body Mass Index) 36.6 kg/m2 08/23/2017 Height 67 inches 5'7" Weight 232.25 lb with shoes Heart Rate 98 /min BP Systolic Sitting 124 mmHg Lue reg cuff BP Diastolic Sitting 80 mmHg Lue reg cuff Respiratory Rate 18 /min O2 % BldC Oximetry 98 % On Ra BMI (Body Mass Index) 36.4 kg/m2 06/30/2017 Weight 225.75 lb Heart Rate 79 /min BP Systolic 112 mmHg BP Diastolic 70 mmHg Body Temperature 98.7 F O2 % BldC Oximetry 98 % 06/24/2017 Height 67 inches 5'7" Weight 235.00 lb Heart Rate 106 /min BP Systolic 130 mmHg BP Diastolic 88 mmHg Respiratory Rate 16 /min Body Temperature 98.1 F BMI (Body Mass Index) 36.8 kg/m2 05/30/2017 Height 67 inches 5'7" Weight 232.00 lb w/shoe Heart Rate 86 /min BP Systolic Sitting 118 mmHg LA lg cuff BP Diastolic Sitting 90 mmHg LA lg cuff O2 % BldC Oximetry 97 % Room air BMI (Body Mass Index) 36.3 kg/m2 Neck Circumference in inches 17 05/13/2017 Height 67 inches 5'7" Weight 225.00 lb Heart Rate 114 /min BP Systolic 146 mmHg BP Diastolic 94 mmHg Body Temperature 98.2 F Pain Level 0 BMI (Body Mass Index) 35.2 kg/m2 04/22/2017 Height 67 inches 5'7" Weight 220.00 lb Heart Rate 98 /min BP Systolic 137 mmHg BP Diastolic 95 mmHg Respiratory Rate 17 /min Body Temperature 97.5 F BMI (Body Mass Index) 34.5 kg/m2 03/21/2017 Height 67 inches 5'7" Weight 220.00 lb Heart Rate 101 /min BP Systolic 134 mmHg BP Diastolic 90 mmHg Respiratory Rate 16 /min Pain Level 9 BMI (Body Mass Index) 34.5 kg/m2 03/11/2017 Weight 228.75 lb Heart Rate 113 /min BP Systolic 122 mmHg BP Diastolic 80 mmHg Body Temperature 98.0 F O2 % BldC Oximetry 98 % 02/21/2017 Weight 226.00 lb Heart Rate 112 /min Body Temperature 98.6 F Pain Level 8 tooth pain. dental appointment 4/4 O2 % BldC Oximetry 99 % 02/07/2017 Weight 229.00 lb Heart Rate 113 /min BP Systolic Sitting 140 mmHg BP Diastolic Sitting 82 mmHg Body Temperature 97.6 F O2 % BldC Oximetry 97 % 01/28/2017 Weight 229.00 lb with shoes Heart Rate 114 /min BP Systolic 124 mmHg BP Diastolic 84 mmHg O2 % BldC Oximetry 98 % 11/24/2016 Height 67 inches 5'7" Weight 229.00 lb Heart Rate 104 /min BP Systolic 122 mmHg BP Diastolic 82 mmHg Body Temperature 99.5 F O2 % BldC Oximetry 97 % BMI (Body Mass Index) 35.9 kg/m2 09/06/2016 Weight 229.00 lb with shoes Heart Rate 104 /min BP Systolic 124 mmHg BP Diastolic 86 mmHg O2 % BldC Oximetry 98 % 12/26/2015 Height 67 inches 5'7" Weight 204.00 lb Pain Level 7 BMI (Body Mass Index) 31.9 kg/m2 08/25/2015 Height 67 inches 5'7" Weight 204.00 lb Pain Level 8 BMI (Body Mass Index) 31.9 kg/m2 08/20/2015 Height 67 inches 5'7" Weight 204.00 lb Pain Level 8 BMI (Body Mass Index) 31.9 kg/m2 08/11/2015 Height 67 inches 5'7" Weight 204.00 lb Body Temperature 97.3 F BMI (Body Mass Index) 31.9 kg/m2 08/04/2015 Height 67 inches 5'7" Weight 204.00 lb Pain Level 6 BMI (Body Mass Index) 31.9 kg/m2 08/01/2015 Height 67 inches 5'7" Weight 104.00 lb Pain Level 5 BMI (Body Mass Index) 16.3 kg/m2 07/21/2015 Height 67 inches 5'7" Weight 220.00 lb Heart Rate 104 /min BP Systolic 136 mmHg BP Diastolic 89 mmHg BMI (Body Mass Index) 34.5 kg/m2 07/21/2015 Height 67 inches 5'7" Weight 220.00 lb Pain Level 5 BMI (Body Mass Index) 34.5 kg/m2 07/09/2015 Height 67 inches 5'7" Weight 220.00 lb Heart Rate 117 /min BP Systolic 136 mmHg BP Diastolic 91 mmHg BMI (Body Mass Index) 34.5 kg/m2 Results Test Date Test Result H/L Range Note Laboratory test finding 06/21/2017 Lipase 13 U/L 11.0-82.0 C Reactive Protein 15.30 mg/L High < 5.00 1 Laboratory test finding 06/21/2017 Surgical Pathology SEE RESULT BELOW 2 Laboratory test finding 06/21/2017 Potassium Redraw 3.6 mmol/L 3.5-5.0 Ast Redraw 24 U/L 13-39 Laboratory test finding 06/21/2017 Lactic Acid 1.6 mmol/L 0.5-2.0 3 CBC Auto Diff 06/21/2017 White Blood Count 18.1 10^3/uL High 3.5-10.8 Red Blood Count 4.94 10^6/uL 4.0-5.4 Hemoglobin 15.8 g/dL 14.0-18.0 Hematocrit 46 % 42-52 Mean Corpuscular Volume 93 fL 80-94 Mean Corpuscular Hemoglobin 32 pg High 27-31 Mean Corpuscular HGB Conc 35 g/dL 31-36 Red Cell Distribution Width 13 % 10.5-15 Abs Neutrophils 15.0 10^3/uL High 1.5-7.7 Abs Lymphocytes 2.2 10^3/uL 1.0-4.8 Abs Monocytes 0.7 10^3/uL 0-0.8 Abs Eosinophils 0.2 10^3/uL 0-0.6 Abs Basophils 0.1 10^3/uL 0-0.2 Abs Nucleated RBC 0.02 10^3/uL Granulocyte % 82.5 % 38-83 Lymphocyte % 11.9 % Low 25-47 Monocyte % 3.9 % 1-9 Eosinophil % 1.1 % 0-6 Basophil % 0.6 % 0-2 Nucleated Red Blood Cells % 0.1 Platelet Count 170 10^3/uL 150-450 4 Comp Metabolic Panel 06/21/2017 Sodium 133 mmol/L 133-145 Chloride 103 mmol/L 101-111 Co2 Carbon Dioxide 22 mmol/L 22-32 Glucose 92 mg/dL 70-100 Blood Urea Nitrogen 11 mg/dL 6-24 Creatinine 0.65 mg/dL Low 0.67-1.17 BUN/Creatinine Ratio 16.9 8-20 Calcium 9.1 mg/dL 8.6-10.3 Total Protein 7.6 g/dL 6.4-8.9 Albumin 4.6 g/dL 3.2-5.2 Globulin 3.0 g/dL 2-4 Albumin/Globulin Ratio 1.5 1-3 Total Bilirubin 0.50 mg/dL 0.2-1.0 Alkaline Phosphatase 63 U/L 34-104 Alt 49 U/L 7-52 Egfr Non- 140.6 >60 Egfr 180.8 >60 5 Potassium TNP mmol/L 3.5-5.0 6 Anion Gap 8 mmol/L 2-11 Ast TNP U/L 13-39 7 Drug Abuse 20 Urine 03/11/2017 Urine Amphetamine Negative ng/mL 8 Urine Barbiturates Negative ng/mL 9 Urine Benzodiazepines Negative ng/mL 10 Urine Cocaine Negative ng/mL 11 Urine Phencyclidine Negative ng/mL Cutoff: 25 Urine Tetrahydrocannabinol Negative ng/mL Cutoff: 50 12 Creatinine 27.1 mg/dL Specific [place] 1.007 pH 6.9 Oxidants Negative 13 Adulterants Comment Normal Codeine, Ur Not Detected ng/mL Cutoff: 25 14 Xvbqjyt-2-foif-glucuronide, Ur Not Detected ng/mL 15 Morphine, Ur Not Detected ng/mL Cutoff: 25 16 Zarhsuax-3-pfzt-glucuronide, U Not Detected ng/mL 17 6-monoacetylmorphine, Ur Not Detected ng/mL Cutoff: 25 18 Hydrocodone, Ur Not Detected ng/mL Cutoff: 25 19 Norhydrocodone, Ur Not Detected ng/mL Cutoff: 25 20 Dihydrocodeine, Ur Not Detected ng/mL Cutoff: 25 21 Hydromorphone, Ur Not Detected ng/mL Cutoff: 25 22 Qggbdthciixbu5zbarrttqoccbqos Not Detected ng/mL 23 Oxycodone, Ur Not Detected ng/mL Cutoff: 25 24 Noroxycodone, Ur Not Detected ng/mL Cutoff: 25 25 Oxymorphone, Ur Not Detected ng/mL Cutoff: 25 26 Iftxhljddye-9-gdxa-glucuronide Not Detected ng/mL 27 Noroxymorphone, Ur Not Detected ng/mL Cutoff: 25 28 Fentanyl, Ur Not Detected ng/mL Cutoff: 2 29 Norfentanyl, Ur Not Detected ng/mL Cutoff: 2 30 Meperidine, Ur Not Detected ng/mL Cutoff: 25 31 Normeperidine, Ur Not Detected ng/mL Cutoff: 25 32 Naloxone, Ur Not Detected ng/mL Cutoff: 25 33 Avsmtbux-8-yfsi-glucuronide, U Not Detected ng/mL 34 Methadone, Ur Not Detected ng/mL Cutoff: 25 35 Eddp, Ur Not Detected ng/mL Cutoff: 25 36 Propoxyphene, Ur Not Detected ng/mL Cutoff: 25 37 Norpropoxyphene, Ur Not Detected ng/mL Cutoff: 25 38 Tramadol, Ur Not Detected ng/mL Cutoff: 25 39 O-desmethyltramadol, Ur Not Detected ng/mL Cutoff: 25 40 Tapentadol, Ur Not Detected ng/mL Cutoff: 25 41 N-desmethyltapentadol, Ur Not Detected ng/mL Cutoff: 50 42 Zmazyywmiq-todb-gaskjzychlq, U Not Detected ng/mL 43 Buprenorphine, Ur Not Detected ng/mL Cutoff: 5 44 Norbuprenorphine, Ur Not Detected ng/mL Cutoff: 5 45 Norbuprenorphine glucuronide Not Detected ng/mL Cutoff: 20 46 Opioid Interpretation See Comment 47 Drug Abuse 20 Urine 01/28/2017 Urine Amphetamine Negative ng/mL 48 Urine Barbiturates Negative ng/mL 49 Urine Benzodiazepines Negative ng/mL 50 Urine Cocaine Negative ng/mL 51 Urine Phencyclidine Negative ng/mL Cutoff: 25 Urine Tetrahydrocannabinol Negative ng/mL Cutoff: 50 52 Creatinine 34.9 mg/dL Specific [place] 1.007 pH 5.9 Oxidants Negative 53 Adulterants Comment Normal Codeine, Ur Not Detected ng/mL Cutoff: 25 54 Hpqxumg-5-oqgf-glucuronide, Ur Not Detected ng/mL 55 Morphine, Ur Not Detected ng/mL Cutoff: 25 56 Rbxudouq-8-ucgi-glucuronide, U Not Detected ng/mL 57 6-monoacetylmorphine, Ur Not Detected ng/mL Cutoff: 25 58 Hydrocodone, Ur Not Detected ng/mL Cutoff: 25 59 Norhydrocodone, Ur Not Detected ng/mL Cutoff: 25 60 Dihydrocodeine, Ur Not Detected ng/mL Cutoff: 25 61 Hydromorphone, Ur Not Detected ng/mL Cutoff: 25 62 Eohpkfcactfvl0ouomyypntwthsly Not Detected ng/mL 63 Oxycodone, Ur Not Detected ng/mL Cutoff: 25 64 Noroxycodone, Ur Not Detected ng/mL Cutoff: 25 65 Oxymorphone, Ur Not Detected ng/mL Cutoff: 25 66 Soffgpeshwd-7-aysm-glucuronide Not Detected ng/mL 67 Noroxymorphone, Ur Not Detected ng/mL Cutoff: 25 68 Fentanyl, Ur Not Detected ng/mL Cutoff: 2 69 Norfentanyl, Ur Not Detected ng/mL Cutoff: 2 70 Meperidine, Ur Not Detected ng/mL Cutoff: 25 71 Normeperidine, Ur Not Detected ng/mL Cutoff: 25 72 Naloxone, Ur Not Detected ng/mL Cutoff: 25 73 Stubsthe-9-ohih-glucuronide, U Not Detected ng/mL 74 Methadone, Ur Not Detected ng/mL Cutoff: 25 75 Eddp, Ur Not Detected ng/mL Cutoff: 25 76 Propoxyphene, Ur Not Detected ng/mL Cutoff: 25 77 Norpropoxyphene, Ur Not Detected ng/mL Cutoff: 25 78 Tramadol, Ur Not Detected ng/mL Cutoff: 25 79 O-desmethyltramadol, Ur Not Detected ng/mL Cutoff: 25 80 Tapentadol, Ur Not Detected ng/mL Cutoff: 25 81 N-desmethyltapentadol, Ur Not Detected ng/mL Cutoff: 50 82 Npcuqejlej-ddoy-xcscafpxwpm, U Not Detected ng/mL 83 Buprenorphine, Ur Not Detected ng/mL Cutoff: 5 84 Norbuprenorphine, Ur Not Detected ng/mL Cutoff: 5 85 Norbuprenorphine glucuronide Not Detected ng/mL Cutoff: 20 86 Opioid Interpretation See Comment 87 Laboratory test finding 11/03/2016 TSH (Thyroid Stim 1.22 mcIU/mL 0.34- 5.60 88 Horm) Hepatitis C Rna Quant Undetected IU/mL Undetected 89 Lipid Profile (Trig/Chol/HDL) 11/03/2016 Triglycerides 911 mg/dL 90 Cholesterol 238 mg/dL 91 HDL Cholesterol 32.7 mg/dL 92 LDL Cholesterol (SEE NOTE) mg/dL 93 Comp Metabolic Panel 11/03/2016 Sodium 135 mmol/L 133-145 Potassium 3.7 mmol/L 3.5-5.0 Chloride 105 mmol/L 101-111 Co2 Carbon Dioxide 24 mmol/L 22-32 Anion Gap 6 mmol/L 2-11 Glucose 96 mg/dL 70-100 Blood Urea Nitrogen 11 mg/dL 6-24 Creatinine 0.72 mg/dL 0.67-1.17 BUN/Creatinine Ratio 15.3 8-20 Calcium 9.0 mg/dL 8.6-10.3 Total Protein 7.2 g/dL 6.4-8.9 Albumin 4.6 g/dL 3.2-5.2 Globulin 2.6 g/dL 2-4 Albumin/Globulin Ratio 1.8 1-3 Total Bilirubin 0.40 mg/dL 0.2-1.0 Alkaline Phosphatase 64 U/L 34-104 Alt 39 U/L 7-52 Ast 20 U/L 13-39 Egfr Non- 125.0 >60 Egfr 160.7 >60 94 CBC Auto Diff 11/03/2016 White Blood Count 8.6 10^3/uL 3.5-10.8 Red Blood Count 5.06 10^6/uL 4.0-5.4 Hemoglobin 16.5 g/dL 14.0-18.0 Hematocrit 46 % 42-52 Mean Corpuscular Volume 91 fL 80-94 Mean Corpuscular Hemoglobin 33 pg High 27-31 Mean Corpuscular HGB Conc 36 g/dL 31-36 Red Cell Distribution Width 14 % 10.5-15 Platelet Count 149 10^3/uL Low 150-450 Mean Platelet Volume 9 um3 7.4-10.4 Abs Neutrophils 5.6 10^3/uL 1.5-7.7 Abs Lymphocytes 2.3 10^3/uL 1.0-4.8 Abs Monocytes 0.5 10^3/uL 0-0.8 Abs Eosinophils 0.2 10^3/uL 0-0.6 Abs Basophils 0.1 10^3/uL 0-0.2 Abs Nucleated RBC 0.01 10^3/uL Granulocyte % 64.9 % 38-83 Lymphocyte % 26.5 % 25-47 Monocyte % 5.5 % 1-9 Eosinophil % 1.9 % 0-6 Basophil % 1.2 % 0-2 Nucleated Red Blood Cells % 0.1 Laboratory test 11/03/2016 Hepatitis C Antibody Low Reactive Nonreactive 95 finding Drug Abuse 20 Urine 09/06/2016 Urine Amphetamine Negative ng/mL 96 Urine Barbiturates Negative ng/mL 97 Urine Benzodiazepines Negative ng/mL 98 Urine Cocaine Negative ng/mL 99 Urine Phencyclidine Negative ng/mL Cutoff: 25 Urine Tetrahydrocannabinol Negative ng/mL Cutoff: 50 100 Creatinine 67.6 mg/dL Specific [place] 1.009 pH 7.4 Oxidants Negative 101 Adulterants Comment Normal Codeine, Ur Not Detected ng/mL Cutoff: 25 102 Uwayyxg-7-tjqh-glucuronide, Ur Not Detected ng/mL 103 Morphine, Ur Not Detected ng/mL Cutoff: 25 104 Vnqnmpeu-9-shca-glucuronide, U Not Detected ng/mL 105 6-monoacetylmorphine, Ur Not Detected ng/mL Cutoff: 25 106 Hydrocodone, Ur Not Detected ng/mL Cutoff: 25 107 Norhydrocodone, Ur Not Detected ng/mL Cutoff: 25 108 Dihydrocodeine, Ur Not Detected ng/mL Cutoff: 25 109 Hydromorphone, Ur Not Detected ng/mL Cutoff: 25 110 Hupzscqafwuxv8vrlcstsvslndlpv Not Detected ng/mL 111 Oxycodone, Ur Not Detected ng/mL Cutoff: 25 112 Noroxycodone, Ur Not Detected ng/mL Cutoff: 25 113 Oxymorphone, Ur Not Detected ng/mL Cutoff: 25 114 Uvjntbpfotm-0-nwlf-glucuronide Not Detected ng/mL 115 Noroxymorphone, Ur Not Detected ng/mL Cutoff: 25 116 Fentanyl, Ur Not Detected ng/mL Cutoff: 2 117 Norfentanyl, Ur Not Detected ng/mL Cutoff: 2 118 Meperidine, Ur Not Detected ng/mL Cutoff: 25 119 Normeperidine, Ur Not Detected ng/mL Cutoff: 25 120 Naloxone, Ur Not Detected ng/mL Cutoff: 25 121 Dqewgzjv-9-djeh-glucuronide, U Not Detected ng/mL 122 Methadone, Ur Not Detected ng/mL Cutoff: 25 123 Eddp, Ur Not Detected ng/mL Cutoff: 25 124 Propoxyphene, Ur Not Detected ng/mL Cutoff: 25 125 Norpropoxyphene, Ur Not Detected ng/mL Cutoff: 25 126 Tramadol, Ur Not Detected ng/mL Cutoff: 25 127 O-desmethyltramadol, Ur Not Detected ng/mL Cutoff: 25 128 Tapentadol, Ur Not Detected ng/mL Cutoff: 25 129 N-desmethyltapentadol, Ur Not Detected ng/mL Cutoff: 50 130 Lkevrxnery-gome-cusdiatisxe, U Not Detected ng/mL 131 Buprenorphine, Ur Not Detected ng/mL Cutoff: 5 132 Norbuprenorphine, Ur Not Detected ng/mL Cutoff: 5 133 Norbuprenorphine glucuronide Not Detected ng/mL Cutoff: 20 134 Opioid Interpretation See Comment 135 CBC Auto Diff 04/22/2014 White Blood Count 10.0 10^3/uL 4.8-10.8 Red Blood Count 4.55 10^6/uL 4.0-5.4 Hemoglobin 14.2 g/dL 14.0-18.0 Hematocrit 40 % Low 42-52 Mean Corpuscular Volume 87 fL 80-94 Mean Corpuscular Hemoglobin 31 pg 27-31 Mean Corpuscular HGB Conc 36 g/dL 31-36 Red Cell Distribution Width 13 % 10.5-15 Platelet Count 136 10^3/uL Low 150-450 Mean Platelet Volume 9 um3 7.4-10.4 Abs Neutrophils 7.4 10^3/uL 1.5-7.7 Abs Lymphocytes 2.0 10^3/uL 1.0-4.8 Abs Monocytes 0.5 10^3/uL 0-0.8 Abs Eosinophils 0.1 10^3/uL 0-0.6 Abs Basophils 0 10^3/uL 0-0.2 Abs Nucleated RBC 0 10^3/uL Granulocyte % 73.5 % 38-83 Lymphocyte % 20.5 % Low 25-47 Monocyte % 4.6 % 1-9 Eosinophil % 1.1 % 0-6 Basophil % 0.3 % 0-2 Nucleated Red Blood Cells % 0 Comp Metabolic Panel 04/22/2014 Sodium 137 mmol/L 133-145 Potassium 3.7 mmol/L 3.7-5.6 Chloride 102 mmol/L 101-111 Co2 Carbon Dioxide 28 mmol/L 22-32 Anion Gap 7 mmol/L 2-11 Glucose 101 mg/dL High 70-100 Blood Urea Nitrogen 10 mg/dL 6-24 Creatinine 0.83 mg/dL 0.67-1.17 BUN/Creatinine Ratio 12.0 8-20 Calcium 10.0 mg/dL 8.6-10.3 Total Protein 8.1 g/dL 6.4-8.9 Albumin 4.9 g/dL 3.2-5.2 Globulin 3.2 g/dL 2-4 Albumin/Globulin Ratio 1.5 1-3 Total Bilirubin 0.70 mg/dL 0.2-1.0 Alkaline Phosphatase 70 U/L 34-104 Alt 26 U/L 7-52 Ast 22 U/L 13-39 Egfr Non- 108.1 >60 Egfr 139.0 >60 136 Laboratory test finding 04/22/2014 Amylase 19 U/L Low 29-103 Lipase 6 U/L Low 11.0-82.0 C Reactive Protein 21.66 mg/L High < 5.00 137 1 Acute inflammation: >10.00 2 SEE RESULT BELOW Name: FREDERIC ADAN : [address]: Froest Brown MD Acct: [id number] Unit: [id number] AGE: 36 Location: OR Re06/21/17 SEX: M Status: DEP SDC SPEC: [id number] LUANNE: 06/21/17- SUBM DR: Forest Beltre MD REQ: [id number] RECD: 06/21/17 STATUS: SOUT _ ORDERED: LEVEL 3 FINAL DIAGNOSIS Vermiform appendix, appendectomy: -- Acute suppurative appendicitis with periappendicitis. PRE-OPERATIVE DIAGNOSIS Acute appendicitis GROSS DESCRIPTION The specimen is received in formalin labeled, Appendix, and consists of a 6.1 by up to 0.9 cm appendix with abundant adherent mesoappendix. The serosa is smooth to focally shaggy rock-pink with moderate rock-white fibropurulent exudate and a few focal fibromembranous adhesions. The lumen measures up to 0.4 cm and contains rock-pink purulent material and hemorrhagic debris. The mucosa is glistening rock-pink with mild hemorrhage and the wall thickness averages 0.1 cm. [employer] sections, one cassette. Signed (signature on file) Yosi Olivarez MD 1355 END OF REPORT * ML=Testing performed at Main Lab DEPARTMENT OF PATHOLOGY, [address] [place] [address] Yosi Olivarez M.D. Director [facility] # [id number] 3 Specimen hemolyzed. Result may not be valid. [facility] Severe Sepsis and Septic Shock Management Bundle Measure requires all lactic acids initially measuring >2.0 mmol/L be repeated. 4 Platelet count by smear estimate. 5 Because ethnic data is not always readily available, this report includes an eGFR for both -Americans and non- Americans. The National Kidney Disease Education Program (NKDEP) does not endorse the use of the MDRD equation for patients that are not between the ages of 18 and 70, are , have extremes of body size, muscle mass, or nutritional status, or are non- or non-. According to the National Kidney Foundation, irrespective of diagnosis, the stage of the disease is based on the level of kidney function: Stage Description GFR(mL/min/1.73 m(2)) 1 Kidney damage with normal or decreased GFR 90 2 Kidney damage with mild decrease in GFR 60-89 3 Moderate decrease in GFR 30-59 4 Severe decrease in GFR 15-29 5 Kidney failure <15 (or dialysis) 6 Specimen hemolyzed, spoke to Rylee for recollect. 7 Specimen hemolyzed, spoke to Rylee for recollect. 8 REFERENCE VALUE Cutoff: 500 9 REFERENCE VALUE Cutoff: 200 10 REFERENCE VALUE Cutoff: 100 11 REFERENCE VALUE Cutoff: 150 12 ADDITIONAL INFORMATION This report is intended for use in clinical monitoring or management of patients. It is not intended for use in employment-related testing. 13 REFERENCE VALUE Cutoff: 200 mg/L 14 Tylenol 3 15 Metabolite of codeine REFERENCE VALUE Cutoff: 100 16 Ale Genao MS Contin; Also a minor metabolite (10%) of codeine and can be seen in low concentrations (<2,000 ng/mL) with poppy seed ingestion. 17 Metabolite of morphine REFERENCE VALUE Cutoff: 100 18 Metabolite of heroin 19 Lortab, [place], Vicodin; Also a very minor metabolite of codeine and impurity (<1%) of oxycodone. 20 Metabolite of hydrocodone 21 Metabolite of hydrocodone 22 Dilaudid, Exalgo; Also a metabolite of hydrocodone and a minor (<5%) metabolite of morphine. 23 Metabolite of hydromorphone REFERENCE VALUE Cutoff: 100 24 Endocet, Percocet, Oxycontin 25 Metabolite of oxycodone 26 Numorphan, Opana; Also a metabolite of oxycodone. 27 Metabolite of oxymorphone REFERENCE VALUE Cutoff: 100 28 Metabolite of oxymorphone 29 Actiq, Duragesic, [place] 30 Metabolite of fentanyl 31 Demerol 32 Metabolite of meperidine 33 Narcan 34 Metabolite of naloxone REFERENCE VALUE Cutoff: 100 35 Dolophine 36 Metabolite of methadone 37 Darvon, Darvocet 38 Metabolite of propoxyphene 39 Tradol, Ultram, Ultracet 40 Metabolite of tramadol 41 Nucynta 42 Metabolite of tapentadol 43 Metabolite of tapentadol REFERENCE VALUE Cutoff: 100 44 Buprenex, Suboxone 45 Metabolite of buprenorphine 46 Metabolite of buprenorphine 47 No opioids were detected. The absence of expected drug(s) and/or drug metabolite(s) may indicate non-compliance, altered pharmacokinetics, inappropriate timing of specimen collection relative to drug administration, diluted/adulterated urine, or limitations of testing. ADDITIONAL INFORMATION This test was developed and its performance characteristics determined by [facility] in a manner consistent with CLIA requirements. This test has not been cleared or approved by the U.S. Food and Drug Administration. Test Performed by: [facility] [employer] - [address] [facility], [place] [address] 48 REFERENCE VALUE Cutoff: 500 49 REFERENCE VALUE Cutoff: 200 50 REFERENCE VALUE Cutoff: 100 51 REFERENCE VALUE Cutoff: 150 52 ADDITIONAL INFORMATION This report is intended for use in clinical monitoring or management of patients. It is not intended for use in employment-related testing. 53 REFERENCE VALUE Cutoff: 200 mg/L 54 Tylenol 3 55 Metabolite of codeine REFERENCE VALUE Cutoff: 100 56 Ale Genao MS Contin; Also a minor metabolite (10%) of codeine and can be seen in low concentrations (<2,000 ng/mL) with poppy seed ingestion. 57 Metabolite of morphine REFERENCE VALUE Cutoff: 100 58 Metabolite of heroin 59 Lortab, [place], Vicodin; Also a very minor metabolite of codeine and impurity (<1%) of oxycodone. 60 Metabolite of hydrocodone 61 Metabolite of hydrocodone 62 Dilaudid, Exalgo; Also a metabolite of hydrocodone and a minor (<5%) metabolite of morphine. 63 Metabolite of hydromorphone REFERENCE VALUE Cutoff: 100 64 Endocet, Percocet, Oxycontin 65 Metabolite of oxycodone 66 Numorphan, Opana; Also a metabolite of oxycodone. 67 Metabolite of oxymorphone REFERENCE VALUE Cutoff: 100 68 Metabolite of oxymorphone 69 Actiq, Duragesic, Fentora 70 Metabolite of fentanyl 71 Demerol 72 Metabolite of meperidine 73 Narcan 74 Metabolite of naloxone REFERENCE VALUE Cutoff: 100 75 Dolophine 76 Metabolite of methadone 77 Darvon, Darvocet 78 Metabolite of propoxyphene 79 Tradol, Ultram, Ultracet 80 Metabolite of tramadol 81 Nucynta 82 Metabolite of tapentadol 83 Metabolite of tapentadol REFERENCE VALUE Cutoff: 100 84 Buprenex, Suboxone 85 Metabolite of buprenorphine 86 Metabolite of buprenorphine 87 No opioids were detected. The absence of expected drug(s) and/or drug metabolite(s) may indicate non-compliance, altered pharmacokinetics, inappropriate timing of specimen collection relative to drug administration, diluted/adulterated urine, or limitations of testing. ADDITIONAL INFORMATION This test was developed and its performance characteristics determined by [facility] in a manner consistent with CLIA requirements. This test has not been cleared or approved by the U.S. Food and Drug Administration. Test Performed by: [facility] [employer] - [address] [address] 88 FASTING 10 HOUR 89 Result in log IU/mL is Undetected. ADDITIONAL INFORMATION The quantification range of this assay is 15 to 100,000,000 IU/mL (1.18 log to 8.00 log IU/mL). Testing was performed by the [employer] TaqMan HCV Test, version 2.0 ([employer] Test Performed by: [facility] - [address] [address] [employer] Supervisor: Michael Summers II, M.D., Ph.D. 90 Desirable <150 Borderline high 150-199 High 200-499 Very High >500 91 Desirable <200 Borderline high 200-239 High >239 92 Low <40 Desirable: 40-60 High: >60 93 Unable to calculate LDL as triglyceride is > 400 94 Because ethnic data is not always readily available, this report includes an eGFR for both -Americans and non- Americans. The National Kidney Disease Education Program (NKDEP) does not endorse the use of the MDRD equation for patients that are not between the ages of 18 and 70, are , have extremes of body size, muscle mass, or nutritional status, or are non- or non-. According to the National Kidney Foundation, irrespective of diagnosis, the stage of the disease is based on the level of kidney function: Stage Description GFR(mL/min/1.73 m(2)) 1 Kidney damage with normal or decreased GFR 90 2 Kidney damage with mild decrease in GFR 60-89 3 Moderate decrease in GFR 30-59 4 Severe decrease in GFR 15-29 5 Kidney failure <15 (or dialysis) 95 Low reactive results are indeterminate. This sample has been reflexed for additional testing. 96 REFERENCE VALUE Cutoff: 500 97 REFERENCE VALUE Cutoff: 200 98 REFERENCE VALUE Cutoff: 100 99 REFERENCE VALUE Cutoff: 150 100 ADDITIONAL INFORMATION This report is intended for use in clinical monitoring or management of patients. It is not intended for use in employment-related testing. 101 REFERENCE VALUE Cutoff: 200 mg/L 102 Tylenol 3 103 Metabolite of codeine REFERENCE VALUE Cutoff: 100 104 Ale Genao MS Contin; Also a minor metabolite (10%) of codeine and can be seen in low concentrations (<2,000 ng/mL) with poppy seed ingestion. 105 Metabolite of morphine REFERENCE VALUE Cutoff: 100 106 Metabolite of heroin 107 Lortab, [place], Vicodin; Also a very minor metabolite of codeine and impurity (<1%) of oxycodone. 108 Metabolite of hydrocodone 109 Metabolite of hydrocodone 110 Dilaudid, Exalgo; Also a metabolite of hydrocodone and a minor (<5%) metabolite of morphine. 111 Metabolite of hydromorphone REFERENCE VALUE Cutoff: 100 112 Endocet, Percocet, Oxycontin 113 Metabolite of oxycodone 114 Numorphan, Opana; Also a metabolite of oxycodone. 115 Metabolite of oxymorphone REFERENCE VALUE Cutoff: 100 116 Metabolite of oxymorphone 117 Actiq, Duragesic, Fentora 118 Metabolite of fentanyl 119 Demerol 120 Metabolite of meperidine 121 Narcan 122 Metabolite of naloxone REFERENCE VALUE Cutoff: 100 123 Dolophine 124 Metabolite of methadone 125 Darvon, Darvocet 126 Metabolite of propoxyphene 127 Tradol, Ultram, Ultracet 128 Metabolite of tramadol 129 Nucynta 130 Metabolite of tapentadol 131 Metabolite of tapentadol REFERENCE VALUE Cutoff: 100 132 Buprenex, Suboxone 133 Metabolite of buprenorphine 134 Metabolite of buprenorphine 135 No opioids were detected. The absence of expected drug(s) and/or drug metabolite(s) may indicate non-compliance, altered pharmacokinetics, inappropriate timing of specimen collection relative to drug administration, diluted/adulterated urine, or limitations of testing. ADDITIONAL INFORMATION This test was developed and its performance characteristics determined by [facility] in a manner consistent with CLIA requirements. This test has not been cleared or approved by the U.S. Food and Drug Administration. PDF Report available at: [email or web address] Test Performed by: [address] [address] [employer] Supervisor: Michael Summers II, M.D., Ph.D. 136 Because ethnic data is not always readily available, this report includes an eGFR for both -Americans and non- Americans. The National Kidney Disease Education Program (NKDEP) does not endorse the use of the MDRD equation for patients that are not between the ages of 18 and 70, are , have extremes of body size, muscle mass, or nutritional status, or are non- or non-. According to the National Kidney Foundation, irrespective of diagnosis, the stage of the disease is based on the level of kidney function: Stage Description GFR(mL/min/1.73 m(2)) 1 Kidney damage with normal or decreased GFR 90 2 Kidney damage with mild decrease in GFR 60-89 3 Moderate decrease in GFR 30-59 4 Severe decrease in GFR 15-29 5 Kidney failure <15 (or dialysis) 137 Acute inflammation: >10.00 Procedures Date CPT Code Description Status Comment 08/02/2017 24679 Polysomnography Sleep Staging Completed 4+ Parameters W/Cpap 06/21/2017 85584 Laparoscopy, Surgical, Completed Appendectomy 04/28/2017 82297 Arthroscopy,Knee,Meniscectomy Completed Medial Or Lateral 04/28/2017 89996 Arthroscopy,Knee,Meniscectomy Completed Medial Or Lateral 07/31/2015 30236 Arthroscopy,Knee, Synovectomy Completed Plica Or Shelf Resect 07/31/2015 18898 Arthroscopy,Knee, Synovectomy Completed Plica Or Shelf Resect 05/21/[address] Badillo. Repeat recommended in 5 yrs. 03/13/2013 26712 Xray Knee 3 Views Completed 03/13/2013 27614 Rad Exam; Knee, Ap&L Completed Encounters Type Date Location Provider CPT E/M Dx Office Visit 04/11/2018 9:20a [facility] [address] T40.1x4A - Kb M89.8x8 Office Visit 04/05/2018 9:20a [facility] [place] [address] M77.11 Kb F17.210 Office Visit 08/23/2017 1:30p [facility] Queenie Castillo, [address] G47.33 [facility] SAKINA RN, SHELL MAKER LOCKSTITCH-BC F17.210 Office Visit 06/30/2017 4:00p [facility] - Bari Kelly, [place] [address] F90.9 [place] F41.9 Office Visit 06/21/2017 7:00a [facility], [address] K35.80 Mayra Richardson Office Visit 05/30/2017 2:00p [facility] [address] R06.83 [facility] R40.0 R51 R41.840 F17.210 Office Visit 03/21/2017 2:00p [facility] M.D. 27833 M25.562 C.M.AAl M25.462 M67.52 Office Visit 03/11/2017 9:00a [facility] [place] [address] F90.0 [place] F41.9 Office Visit 02/21/2017 2:00p [facility] [place] [address] F90.0 [place] Z72.0 K08.89 Office Visit 02/07/2017 8:40a [facility] [place] [address] L72.3 [place] F90.0 R06.83 R40.0 Office Visit 01/28/2017 9:20a [facility] [place] [address] F90.0 [place] F41.9 Office Visit 11/24/2016 10:40a [facility] [place] [address] F90.0 [place] E78.2 Office Visit 09/06/2016 1:00p [facility] [place] [address] F90.0 [place] F31.89 Z13.220 Z11.59 Z79.899 Z23 Z72.0 Office Visit 12/26/2015 2:00p [facility] M.D. 11467 M25.562 C.M.AAl M25.462 Office Visit 08/25/2015 1:15p [facility], [address]207 S83.412D C.MVernon Richardson M25.562 M25.462 Office Visit 08/20/2015 1:00p [facility] Ruby M.D. 99912 S83.412A C.M.Narda S80.02xA Office Visit 07/09/2015 2:15p [facility], 53702 719.46 C.MVernon Richardson Office Visit 04/04/2013 11:22a [facility], Devin Serrano, [address] 070.51 Hospitalists N.P. 300.00 296.60 789.01 Office Visit 03/30/2013 9:24a [facility], Apollo Connell, 17326 573.3 Hospitalists M.DAl 305.1 Office Visit 03/29/2013 9:23a [facility], Damián Beard, 46824 573.3 Hospitalists N.P. 305.1 Office Visit 03/13/2013 2:00p [facility] Yang [address]246 836.1 C.M.A. Office Visit 03/07/2013 10:45a [facility] Stack M.D. 34399 836.1 C.M.A. Plan of Care 05/19/2018 - Damián Mojica, MDM77.11 Lateral epicondylitis, right elbowNew Therapy:Physical TherapyFollow up:Follow up: after testing is xabhwymtgV15.01 Carpal tunnel syndrome, right upper limb
--- OUTSIDE RECORDS SUMMARY | 2018-06-13 14:08 | XMS REPORT ---
:1980 External Reference #:[id number] Author Organization [facility] [employer] Address [address] [facility] [place] [address] [place] [address] Phone [phone] Care Team Providers Name Role Phone Anastasiia Patterson MD Primary Care Physician Unavailable Payers Type Date Identification Numbers Payment Provider Subscriber Commercial Policy Number: [id number] [employer] Name: [id number] [address] PayID: [id number] [place] [address] Medigap Part B Expires: 2016 Policy Number: [id number] Medicaid Frederic [employer] Name: 1 1 [address] PayID: [id number] [place] [address] Commercial Expires: 2016 Policy Number: [id number] [employer] Name: [id number] [address] PayID: [id number] [place] [address] Problems Date Description Provider Status Onset: 07/21/2015 Arthralgia of the lower leg Charley Golden M.D. Active Onset: 07/21/2015 Knee joint effusion Charley Golden M.D. Active Onset: 08/25/2015 Sprain of medial collateral Charley Golden M.D. 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 [employer] ETOH Use Denies alcohol use Recreational Drug [...] 05/15 Hx TBPK 4mg 21uni as M77.11 ts directed EVERARDO Kelly - on 05/20 package Bupropion HCL ER 04/05 Active Tablets 150mg 60tab one F17.210 Bari (Smoking Det) ER 12HR s tablet EVERARDO Kelly once daily x 3 days and then one tablet twice daily Nicotine 04/05 Active Patches 21mg/24HR 28uni one patch F17.210 24HR ts daily x 6 EVERARDO Kelly weeks Ibuprofen 04/05 Active Tablets 600mg 90tab take one s tablet by EVERARDO Kelly mouth three times a day as needed with food Seroquel 05/16 Active Tablets 200mg 60tab 2 tab by Bari s mouth EVERARDO Kelly every night at bedtime Lexapro 03/11 Active Tablets 20mg 30tab one s tablet EVERARDO Kelly daily Percocet 06/24 Hx Tablets 5-325mg 15tab 1 tab by K35.3 s mouth Schwna, - every 4 M.D. 06/24 hours needed Percocet 06/24 Hx Tablets 10-325mg 12tab [...] Bari mphet ER 24HR s mouth Robin, MAINTENANCE DEPARTMENT TECHNICIAN - every day 05/29 Tramadol HCL 02/21 Hx Tablets 50mg 12tab 1-2 K08.89 Bari s tablets Robin, MAINTENANCE DEPARTMENT TECHNICIAN - every 8 / hours needed for pain. Chantix 02/21 Hx Tablets 0.5mg 60tab 1 tablet Z72.0 Bari s daily x 3 Robin, MAINTENANCE DEPARTMENT TECHNICIAN days then increase to 1 tablet twice daily Amphetamine-Dextroa 02/07 Hx Caps ER 25mg 30cap One F90.0 Bari mphet ER 24HR s tablet Robin, MAINTENANCE DEPARTMENT TECHNICIAN - once 02/21 Gabapentin 02/03 Hx Capsules 100mg 30cap take 1 to Bari s 3 Robin, MAINTENANCE DEPARTMENT TECHNICIAN - capsules 05/29 by mouth at night Dextroamphetamine 01/28 Hx Caps ER 15mg 15cap 1 by F90.0 Bari Sulfate 24HR s mouth Robin, MAINTENANCE DEPARTMENT TECHNICIAN - every day 02/07 Clonazepam 01/28 Hx Tablets 1mg 30tab /-1 F41.9 Bari s tablet Robin, MAINTENANCE DEPARTMENT TECHNICIAN twice daily as needed anxiety Adderall XR 12/07 Hx Caps ER 25mg 30cap one by F90.0 Bari 24HR s mouth Robin, MAINTENANCE DEPARTMENT TECHNICIAN - every in 01/28 morning Adderall XR 11/24 Hx Caps ER 30mg 30cap 1 by F90.0 Bari 24HR s mouth Robin, MAINTENANCE DEPARTMENT TECHNICIAN - every day 12/07 Adderall XR 09/06 Hx Caps ER 25mg 30cap one by F90.0 Bari 24HR s mouth Robin, MAINTENANCE DEPARTMENT TECHNICIAN - every in 11/24 morning Oxycodone-Acetamino 08/04 Hx Tablets 5-325mg 14tab take 1 to Z48.89 Dirk phen s 2 tablets Tung, - by mouth M.D. 12/23 every to 8 hours as needed pain Ibuprofen 07/31 Hx Tablets 800mg 60tab 1 tablet Charley s q8 hours [place], as needed M.D. for pain Naproxen 07/09 Hx Tablets 250mg 60tab 1 tab po Ashley s bid Rodriguez, - M.D. 07/31 Oxycodone-Acetamino [...] Code Status Date Vaccine Reaction Lot # [id number] Given 09/06/2016 Influenza Virus Vaccine, no reaction noted ... [id number] Quadrivalent, Split Virus, hh Im Use Vital Signs Date Vital Result Comment 05/15/2018 Height 67 inches 5'7" Weight 231.25 [...] 06/21/2017 Lactic Acid 1.6 mmol/L 0.5-2.0 3 Comp Metabolic Panel 06/21/2017 Sodium 133 mmol/L [...] Egfr Non- 140.6 >60 Egfr 180.8 >60 4 Potassium TNP mmol/L 3.5-5.0 5 Anion Gap 8 mmol/L 2-11 Ast TNP U/L 13-39 6 CBC Auto Diff 06/21/2017 White Blood Count [...] % 0.1 Platelet Count 170 10^3/uL 150-450 7 Drug Abuse 20 Urine 03/11/2017 Urine Amphetamine Negative ng/mL 8 Urine Barbiturates Negative ng/mL 9 Urine Benzodiazepines Negative ng/mL 10 Urine Cocaine Negative ng/mL 11 Urine Phencyclidine Negative ng/mL Cutoff: 25 Urine Tetrahydrocannabinol Negative ng/mL Cutoff: 50 12 Creatinine 27.1 mg/dL Specific [place] 1.007 pH 6.9 Oxidants Negative 13 Adulterants Comment Normal Codeine, Ur Not Detected ng/mL Cutoff: 25 14 Irfpnty-8-tlix-glucuronide, Ur Not Detected ng/mL 15 Morphine, Ur Not Detected ng/mL Cutoff: 25 16 Mwhwjjby-5-vpgb-glucuronide, U Not Detected ng/mL 17 6-monoacetylmorphine, Ur Not Detected ng/mL Cutoff: 25 18 Hydrocodone, Ur Not Detected ng/mL Cutoff: 25 19 Norhydrocodone, Ur Not Detected ng/mL Cutoff: 25 20 Dihydrocodeine, Ur Not Detected ng/mL Cutoff: 25 21 Hydromorphone, Ur Not Detected ng/mL Cutoff: 25 22 Dgcvnqianmtub4ypsssxrebywlboz Not Detected ng/mL 23 Oxycodone, Ur Not Detected ng/mL Cutoff: 25 24 Noroxycodone, Ur Not Detected ng/mL Cutoff: 25 25 Oxymorphone, Ur Not Detected ng/mL Cutoff: 25 26 Tdqapytyosi-8-rmle-glucuronide Not Detected ng/mL 27 Noroxymorphone, Ur Not Detected ng/mL Cutoff: 25 28 Fentanyl, Ur Not Detected ng/mL Cutoff: 2 29 Norfentanyl, Ur Not Detected ng/mL Cutoff: 2 30 Meperidine, Ur Not Detected ng/mL Cutoff: 25 31 Normeperidine, Ur Not Detected ng/mL Cutoff: 25 32 Naloxone, Ur Not Detected ng/mL Cutoff: 25 33 Yhnruuke-3-qqad-glucuronide, U Not Detected ng/mL 34 Methadone, Ur [...] Ur Not Detected ng/mL Cutoff: 50 42 Toyhzbzxsi-pghq-npaxzprobji, U Not Detected ng/mL 43 Buprenorphine, Ur [...] Cutoff: 50 52 Creatinine 34.9 mg/dL Specific [place] 1.007 pH 5.9 Oxidants Negative 53 Adulterants Comment Normal Codeine, Ur Not Detected ng/mL Cutoff: 25 54 Aswgsal-0-zemy-glucuronide, Ur Not Detected ng/mL 55 Morphine, Ur Not Detected ng/mL Cutoff: 25 56 Nfqcxrvo-1-lcoj-glucuronide, U Not Detected ng/mL 57 6-monoacetylmorphine, Ur Not Detected ng/mL Cutoff: 25 58 Hydrocodone, Ur Not Detected ng/mL Cutoff: 25 59 Norhydrocodone, Ur Not Detected ng/mL Cutoff: 25 60 Dihydrocodeine, Ur Not Detected ng/mL Cutoff: 25 61 Hydromorphone, Ur Not Detected ng/mL Cutoff: 25 62 Belhnthlelpmv3eiwzuzyqttnafjz Not Detected ng/mL 63 Oxycodone, Ur Not Detected ng/mL Cutoff: 25 64 Noroxycodone, Ur Not Detected ng/mL Cutoff: 25 65 Oxymorphone, Ur Not Detected ng/mL Cutoff: 25 66 Fhuggguicer-9-dvlk-glucuronide Not Detected ng/mL 67 Noroxymorphone, Ur Not Detected ng/mL Cutoff: 25 68 Fentanyl, Ur Not Detected ng/mL Cutoff: 2 69 Norfentanyl, Ur Not Detected ng/mL Cutoff: 2 70 Meperidine, Ur Not Detected ng/mL Cutoff: 25 71 Normeperidine, Ur Not Detected ng/mL Cutoff: 25 72 Naloxone, Ur Not Detected ng/mL Cutoff: 25 73 Vfdqqjdx-5-qxjm-glucuronide, U Not Detected ng/mL 74 Methadone, Ur [...] Ur Not Detected ng/mL Cutoff: 50 82 Qkpkzmpzsx-jqnk-dzxzqqpsolk, U Not Detected ng/mL 83 Buprenorphine, Ur Not Detected ng/mL Cutoff: 5 84 Norbuprenorphine, Ur Not Detected ng/mL Cutoff: 5 85 Norbuprenorphine glucuronide Not Detected ng/mL Cutoff: 20 86 Opioid Interpretation See Comment 87 Comp Metabolic Panel 11/03/2016 Sodium 135 mmol/L [...] Egfr Non- 125.0 >60 Egfr 160.7 >60 88 Laboratory test finding 11/03/2016 TSH (Thyroid Stim 1.22 mcIU/mL 0.34- 5.60 89 Horm) Hepatitis C Rna Quant Undetected IU/mL Undetected 90 CBC Auto Diff 11/03/2016 White Blood Count [...] 11/03/2016 Hepatitis C Antibody Low Reactive Nonreactive 91 finding Lipid Profile 11/03/2016 Triglycerides 911 mg/dL 92 (Trig/Chol/HDL) Cholesterol 238 mg/dL 93 HDL Cholesterol 32.7 mg/dL 94 LDL Cholesterol (SEE NOTE) mg/dL 95 Drug Abuse 20 Urine 09/06/2016 Urine Amphetamine Negative ng/mL 96 Urine Barbiturates Negative ng/mL 97 Urine Benzodiazepines Negative ng/mL 98 Urine Cocaine Negative ng/mL 99 Urine Phencyclidine Negative ng/mL Cutoff: 25 Urine Tetrahydrocannabinol Negative ng/mL Cutoff: 50 100 Creatinine 67.6 mg/dL Specific [place] 1.009 pH 7.4 Oxidants Negative 101 Adulterants Comment Normal Codeine, Ur Not Detected ng/mL Cutoff: 25 102 Sipiozn-5-ptvw-glucuronide, Ur Not Detected ng/mL 103 Morphine, Ur Not Detected ng/mL Cutoff: 25 104 Qtjrqmtb-9-svty-glucuronide, U Not Detected ng/mL 105 6-monoacetylmorphine, Ur Not Detected ng/mL Cutoff: 25 106 Hydrocodone, Ur Not Detected ng/mL Cutoff: 25 107 Norhydrocodone, Ur Not Detected ng/mL Cutoff: 25 108 Dihydrocodeine, Ur Not Detected ng/mL Cutoff: 25 109 Hydromorphone, Ur Not Detected ng/mL Cutoff: 25 110 Rvtmnlggoshau7isugmietoicuohk Not Detected ng/mL 111 Oxycodone, Ur Not Detected ng/mL Cutoff: 25 112 Noroxycodone, Ur Not Detected ng/mL Cutoff: 25 113 Oxymorphone, Ur Not Detected ng/mL Cutoff: 25 114 Ucenfrdxuef-4-cwwx-glucuronide Not Detected ng/mL 115 Noroxymorphone, Ur Not Detected ng/mL Cutoff: 25 116 Fentanyl, Ur Not Detected ng/mL Cutoff: 2 117 Norfentanyl, Ur Not Detected ng/mL Cutoff: 2 118 Meperidine, Ur Not Detected ng/mL Cutoff: 25 119 Normeperidine, Ur Not Detected ng/mL Cutoff: 25 120 Naloxone, Ur Not Detected ng/mL Cutoff: 25 121 Sgfabhwj-0-qcuq-glucuronide, U Not Detected ng/mL 122 Methadone, Ur [...] Ur Not Detected ng/mL Cutoff: 50 130 Mmkurfqdac-bgxn-kydtulspmmh, U Not Detected ng/mL 131 Buprenorphine, Ur [...] Name: FREDERIC ADAN : [address]: Forest Brown MD Acct: [id number] Unit: [id number] AGE: 36 Location: OR Re06/21/17 SEX: M Status: DEP [facility] SPEC: [id number] LUANNE: 06/21/17- SUBM DR: Forest Beltre MD REQ: [id number] RECD: 06/21/17 STATUS: SOUT _ ORDERED: LEVEL [...] and the wall thickness averages 0.1 cm. Adjunct Faculty Instructor sections, one cassette. Signed (signature on file) Yosi Olivarez MD 1355 END OF REPORT * ML=Testing performed at Main Lab DEPARTMENT OF PATHOLOGY, [address] [place] [address] Yosi Olivarez M.D. Director [facility] # [id number] 3 Specimen hemolyzed. Result may not be valid. [place] Severe Sepsis and Septic Shock Management Bundle Measure requires all lactic acids initially measuring >2.0 mmol/L be repeated. 4 Because ethnic data is not always readily [...] 15-29 5 Kidney failure <15 (or dialysis) 5 Specimen hemolyzed, spoke to Rylee for recollect. 6 Specimen hemolyzed, spoke to Rylee for recollect. 7 Platelet count by smear estimate. 8 REFERENCE VALUE Cutoff: 500 9 REFERENCE [...] codeine REFERENCE VALUE Cutoff: 100 16 Ale Genao, Contin; Also a minor metabolite (10%) of codeine and can be seen in low concentrations (<2,000 ng/mL) with poppy seed ingestion. 17 Metabolite of morphine REFERENCE VALUE Cutoff: 100 18 Metabolite of heroin 19 Lortab, [place], Vicodin; Also a very minor metabolite of [...] developed and its performance characteristics determined by [facility] in a manner consistent with CLIA requirements. This test has not been cleared or approved by the U.S. Food and Drug Administration. Test Performed by: [facility] - [address] [address] 48 REFERENCE VALUE Cutoff: 500 49 REFERENCE [...] codeine REFERENCE VALUE Cutoff: 100 56 Ale Genao, MS Contin; Also a minor metabolite (10%) of codeine and can be seen in low concentrations (<2,000 ng/mL) with poppy seed ingestion. 57 Metabolite of morphine REFERENCE VALUE Cutoff: 100 58 Metabolite of heroin 59 Lortab, [place], Vicodin; Also a very minor metabolite of [...] developed and its performance characteristics determined by [facility] in a manner consistent with CLIA requirements. This test has not been cleared or approved by the U.S. Food and Drug Administration. Test Performed by: [facility] - [address] [address] 88 Because ethnic data is not always readily [...] 15-29 5 Kidney failure <15 (or dialysis) 89 FASTING 10 HOUR 90 Result in log IU/mL is Undetected. ADDITIONAL INFORMATION The quantification range of this assay is 15 to 100,000,000 IU/mL (1.18 log to 8.00 log IU/mL). Testing was performed by the [employer] AmpliPrep/TRISTAN TaqMan HCV Test, version 2.0 ([employer] Test Performed by: [place] [address] Yarn Spinner: Michael Summers II, M.D., Ph.D. 91 Low reactive results are indeterminate. This sample has been reflexed for additional testing. 92 Desirable <150 Borderline high 150-199 High 200-499 Very High >500 93 Desirable <200 Borderline high 200-239 High >239 94 Low <40 Desirable: 40-60 High: >60 95 Unable to calculate LDL as triglyceride is > 400 96 REFERENCE VALUE Cutoff: 500 97 REFERENCE [...] codeine REFERENCE VALUE Cutoff: 100 104 Ale Genao, MS Contin; Also a minor metabolite (10%) of codeine and can be seen in low concentrations (<2,000 ng/mL) with poppy seed ingestion. 105 Metabolite of morphine REFERENCE VALUE Cutoff: 100 106 Metabolite of heroin 107 Lortab, [place], Vicodin; Also a very minor metabolite of [...] developed and its performance characteristics determined by [facility] in a manner consistent with CLIA requirements. This test has not been cleared or approved by the U.S. Food and Drug Administration. PDF Report available at: [email or web address] Test Performed by: [facility] - [address] [address] Yarn Spinner: Michael Summers II, M.D., Ph.D. 136 Because [...] Date CPT Code Description Status Comment 08/02/2017 70162 Polysomnography Sleep Staging Completed 4+ Parameters W/Cpap 06/21/2017 28085 Laparoscopy, Surgical, Completed Appendectomy 04/28/2017 86565 Arthroscopy,Knee,Meniscectomy Completed Medial Or Lateral 04/28/2017 66884 Arthroscopy,Knee,Meniscectomy Completed Medial Or Lateral 07/31/2015 02853 Arthroscopy,Knee, Synovectomy Completed Plica Or Shelf Resect 07/31/2015 69610 Arthroscopy,Knee, Synovectomy Completed Plica Or Shelf Resect 05/21/[address] Badillo. Repeat recommended in 5 yrs. 03/13/2013 34786 Xray Knee 3 Views Completed 03/13/2013 57143 Rad Exam; Knee, Ap&L Completed Encounters Type Date Location Provider CPT E/M Dx Office Visit 04/11/2018 9:20a [facility] [address] [place] [address] T40.1x4A - [place] M89.8x8 Office Visit 04/05/2018 9:20a [facility] [address] [place] [address] M77.11 [place] F17.210 Office Visit 08/23/2017 1:30p [facility] Queenie Castillo, [address]007 G47.33 [facility] Of [facility] [address] SAKINA RN, SURVEILLANCE AGENT-BC F17.210 Office Visit 06/30/2017 4:00p [facility] [address] [place] [address] F90.9 [place] F41.9 Office Visit 06/21/2017 7:00a [facility] [place], [address] K35.80 Mayra Richardson Office Visit 05/30/2017 2:00p [facility] [address] R06.83 [facility] [address] R40.0 R51 R41.840 F17.210 Office Visit 03/21/2017 2:00p [facility] Char[facility] Golden M.D. 66775 M25.562 C.M.AAl M25.462 M67.52 Office Visit 03/11/2017 9:00a [facility] [address] Internal Medicine - Bari Kelly, EVERARDO [address] F90.0 [place] F41.9 Office Visit 02/21/2017 2:00p [facility] [address] [place] [address] F90.0 [place] Z72.0 K08.89 Office Visit 02/07/2017 8:40a [facility] [address] [place] [address] L72.3 [place] F90.0 R06.83 R40.0 Office Visit 01/28/2017 9:20a [facility] [address] Internal Medicine Bari Kelly, EVERARD[place] [address] F90.0 [place] F41.9 Office Visit 11/24/2016 10:40a [facility] [address] Internal Medicine - Bari Kelly, [place]ERARD[place] [address] F90.0 [place] E78.2 Office Visit 09/06/2016 1:00p [facility] [address] [place] [address] F90.0 [place] F31.89 Z13.220 Z11.59 Z79.899 Z23 Z72.0 Office Visit 12/26/2015 2:00p [facility] Golden M.D. 16358 M25.562 C.MAlAAl M25.462 Office Visit 08/25/2015 1:15p [facility] 00753 S83.412D Chance Richardson M25.562 M25.462 Office Visit 08/20/2015 1:00p [facility] Laron Ruby M.D. 50030 S83.412A Becki.MVernon S80.02xA Office Visit 07/09/2015 2:15p [facility] Golden, 68389 719.46 C.M.AAl Richardson Office Visit 04/04/2013 11:22a [facility], Devin Serrano, [address] 070.51 Hospitalists N.P. 300.00 296.60 789.01 Office Visit 03/30/2013 9:24a [facility], Apollo Connell, 79294 573.3 Hospitalists M.DAl 305.1 Office Visit 03/29/2013 9:23a [facility], Damián Beard, [address]1982 573.3 Hospitalists N.P. 305.1 Office Visit 03/13/2013 2:00p [facility] [address] 836.1 C.M.A. Office Visit 03/07/2013 10:45a [facility] Inocencio Stack M.D. 36351 836.1 C.M.A. Plan of Care 05/15/2018 - Bari Kelly NPM77.11 Lateral epicondylitis, right elbowNew Medication:Medrol 4 mgComments:I am referring you to orthopedics for further evaluation as we discussed.Take the medrol dose pack as directed with food. Do not take with the ibuprofen or Aleve.Referral:Damián Mojica MD, Surgery,Hand WljkwciwkbH02.01 Carpal tunnel syndrome, right upper limbComments:You can try using one of the wrist splints we discussed at night.
--- NOTE | 2018-06-13 14:10 | UC ---
Abdominal Pain Female HPI - HPI Summary HPI Summary: nausea and vomiting x 1 days feels lightheaded and not feeling well no abdominal pain , no diarrhea or constipation no urinary sx, no fever, + chills and body aches - History of Current Complaint Stated Complaint: dizziness,nauseous Time Seen by Provider: 06/13/18 14:03 Hx Obtained From: Patient Onset/Duration: Gradual Onset, Lasting Days - 1, Still Present Timing: Constant Severity Initially: Moderate Severity Currently: Moderate Location: Diffuse Radiates: No Character: Cramping Aggravating Factor(s): Food Alleviating Factor(s): Nothing Associated Signs and Symptoms: Positive: Nausea, Vomiting. Negative: Diaphoresis, Fever, Cough, Chest Pain, Dizzy, Constipation, Blood in Stool, Urinary Symptoms, Decreased Appetite, Diarrhea Allergies/Adverse Reactions: Allergies Allergy/AdvReac Type Severity Reaction Status Date / Time ketorolac Allergy Dizziness Verified 02/18/18 17:13 morphine Allergy Rash Verified 02/18/18 17:13 Sulfa (Sulfonamide Allergy Hives Verified 02/18/18 17:13 Antibiotics) PMH/Surg Hx/FS Hx/Imm Hx Previously Healthy: Yes - Surgical History Surgical History: Yes Surgery Procedure, Year, and Place: Cholecystectomy 05/10/13- [facility] [place]; Appy summer 2016. RIGHT KNEE SURGERY, 07/2015, [facility] [place]; Left knee 2016 [facility] [place] - Family History Known Family History: Positive: Cardiac Disease, Diabetes, Other - Colon and bladder CA to father - Social History Alcohol Use: None Substance Use Type: None Substance Use Comment - Amount & Last Used: last used 2011 Smoking Status (MU): Heavy Every Day Tobacco Smoker Type: Cigarettes Amount Used/How Often: 1/2 PPD Length of Time of Smoking/Using Tobacco: 15 YEARS Have You Smoked in the Last Year: Yes When Did the Patient Quit Smoking/Using Tobacco: using chantix Household Exposure Type: Cigarettes - Immunization History Most Recent Tetanus Shot: Unknown Review of Systems Constitutional: Chills, Fatigue Skin: Negative Eyes: Negative ENT: Negative Respiratory: Negative Cardiovascular: Negative Is Patient Immunocompromised?: No All Other Systems Reviewed And Are Negative: Yes Physical Exam Triage Information Reviewed: Yes Appearance: Well-Appearing, No Pain Distress, Well-Nourished Vital Signs Reviewed: Yes Eye Exam: Normal Eyes: Positive: Conjunctiva Clear ENT: Positive: Normal ENT inspection, Hearing grossly normal, Pharynx normal Neck: Positive: Supple, Nontender, No Lymphadenopathy Respiratory: Positive: Chest non-tender, Lungs clear, Normal breath sounds Cardiovascular: Positive: RRR, No Murmur, Pulses Normal Abdominal Exam: Normal Abdomen Description: Positive: Nontender, Soft. Negative: CVA Tenderness (R), CVA Tenderness (L), Distended, Guarding Bowel Sounds: Positive: Present Skin Exam: Normal Abd Pain Female Course/Dx - Differential Dx/Diagnosis Provider Diagnoses: viral illness Discharge - Sign-Out/Discharge Documenting (check all that apply): Patient Departure - Discharge Plan Condition: Stable Disposition: HOME Patient Education Materials: Viral Syndrome (ED) Referrals: Bari Kelly NP [Primary Care Provider] - If Needed - Billing Disposition and Condition Condition: STABLE Disposition: Home
[2018-06-13 14:11] VITALS: BP 114/77
== END 2018-06-13 14:12 | disposition home or self-care (01) ==
LOC: UCCORT 13:50
DX: B34.9 Viral infection, unspecified (principal); Z88.5 Allergy status to narcotic agent; Z88.2 Allergy status to sulfonamides; F17.210 Nicotine dependence, cigarettes, uncomplicated
CPT/HCPCS: 99211; G0463

== ENCOUNTER → 2018-07-17 09:16 | Day surgery (SDC) | payer OTHER ==
[~2018-07-17 09:16] MED LIST changes: +Buffered Lidocaine 0.9% SYRIN* 5 ML/SYR SYRINGE INTRADERM ONE; -Dexamethasone IV* 4 MG/ML 1 ML (4 MG) IV SLOW PU ONE; -Dexamethasone IV* 4 MG/ML 1 ML (4 MG) ONE; -Famotidine IV* 10 MG/ML 2 ML (20 mg) IV ONE; -Famotidine IV* 10 MG/ML 2 ML (20 mg) ONE; +Lidocaine 2% PF * 5 ML VIAL ONE; +Midazolam* 1 MG/ML 5 ML VIAL (5 MG) ONE; +Naloxone* 0.4 MG/ML 1 ML VIAL IV PRN; +Propofol* 10 MG/ML 20 ML BTL IV PUSH ONE; +ROPIVACAINE 5 MG/ML 30 ML BTL (0.5%) ONE; +Ropivacaine* 2 MG/ML 20 ML VIAL (0.2%) ONE; +Sodium Citrate/Citric Acid* 15 ML UDC ONE; +Sodium Citrate/Citric Acid* 15 ML UDC PO ONE; -ceFAZolin 2 GM PREMIX(*) 2 GM/50 ML BAG IVPB ONE; +fentaNYL* 50 MCG/ML 2 ML VIAL (100 MCG VIAL) ONE
[2018-07-17 13:50] VITALS: BP 118/74
--- NOTE | 2018-07-18 21:41 | OP ---
DATE OF OPERATION: 07/17/18 - SDS DATE OF : 84 SURGEON: Damián Mojica MD GOLF SUPERINTENDENT: DEBORA Prakash ANESTHESIOLOGIST: Dr. Marin. ANESTHESIA: Local MAC. PRE-OP DIAGNOSIS: Right carpal tunnel syndrome. POST-OP DIAGNOSIS: Right carpal tunnel syndrome. OPERATIVE PROCEDURE: Right open carpal tunnel release. INDICATIONS: Wade is 37. He has had progressive right carpal tunnel syndrome. We talked about risks and benefits, he wanted to proceed with the procedure. ESTIMATED BLOOD LOSS: 2 mL. COMPLICATIONS: None. FINDINGS: As expected. DESCRIPTION OF PROCEDURE: Wade was seen in the preoperative holding area. The correct side, site and procedure were identified. We came back to the operating room where the arm was prepped and draped in the usual fashion. A time-out was performed. I began by making a 2-3 cm longitudinal incision in the typical location for an open carpal tunnel release. Dissection was carried down through the skin and subcutaneous tissue in the palmar fascia to expose the transverse carpal ligament. This was released from distal to proximal of the radial aspect of the hook of the hamate. I then released the fascia and subcutaneous tissue proximally and retracted this out of the way. The tenotomy scissors were then used to release the remainder of the transverse carpal ligament and distal antebrachial fascia to a level several centimeters proximal to the wrist flexion crease. Once I checked they were released and everything was completely decompressed, we irrigated out the wound. Skin was closed with 4-0 nylon suture. Wound was dressed and he was taken to the recovery room in stable condition. Tourniquet was used to 250 mmHg throughout the case. [id number]/CPS #: [id number] [facility]
== END | disposition home or self-care (01) ==
LOC: OR 09:16
PROVIDERS: ATTEND Orthopaedic Surgery Hand Surgery
DX: G56.01 Carpal tunnel syndrome, right upper limb (principal); F41.8 Other specified anxiety disorders; G47.33 Obstructive sleep apnea (adult) (pediatric); Z72.0 Tobacco use
CPT/HCPCS: A9270-GY; J2250; J2704; J2795; J3010

== ENCOUNTER 2020-02-02 12:12 | Emergency (ER) | payer OTHER ==
[2020-02-02 13:34] VITALS: BP 112/69
[2020-02-02 14:12] LABS: Influenza A Molecular Negative (Negative); Influenza B Molecular Negative (Negative)
--- NOTE | 2020-02-02 14:18 | UC ---
FLU HPI - HPI Summary HPI Summary: Pt states he has a headache, fever (took tylenol before he came in), scratchy throat, tired. Symptoms started yesterday. nothing makes it better/movement makes it worse. - History of Current Complaint Chief Complaint: UCGeneralIllness Stated Complaint: FEVER,SORE THROAT,HEADACHE Time Seen by Provider: 02/02/20 14:16 Hx Obtained From: Patient Pain Intensity: 5 Pain Scale Used: 0-10 Numeric - Allergy/Home Medications Allergies/Adverse Reactions: Allergies Allergy/AdvReac Type Severity Reaction Status Date / Time ketorolac Allergy Dizziness Verified 02/02/20 13:34 morphine Allergy Rash Verified 02/02/20 13:34 Sulfa (Sulfonamide Allergy Hives Verified 02/02/20 13:34 Antibiotics) Home Medications: Home Medications Escitalopram * [Lexapro 20 mg (NF)] 20 mg PO BEDTIME 04/29/13 [History Confirmed 02/02/20] QUEtiapine TAB* [Seroquel 100 MG *] 200 mg PO BEDTIME 04/29/13 [History Confirmed 02/02/20] Benzonatate CAP* [Tessalon 100 MG CAP*] 100 mg PO BID 7 Days #14 cap 02/02/20 [ Rx] Buprenorp/Nalox 8-2 MG SL TAB [Suboxone 8-2 mg SL TAB*] 1 tab.sl SL BID [History Confirmed 02/02/20] PMH/Surg Hx/FS Hx/Imm Hx Previously Healthy: Yes Psychological History: Anxiety, Depression Other Psychological History: OUD - Surgical History Surgical History: Yes Surgery Procedure, Year, and Place: Cholecystectomy 05/10/13- [facility] [place]; [place] summer 2016. RIGHT KNEE SURGERY, 07/2015, [facility] [place]; Left knee 2016 [facility] [place] - Family History Known Family History: Positive: Cardiac Disease, Diabetes, Other - Colon and bladder CA to father - Social History Alcohol Use: None Substance Use Type: None Substance Use Comment - Amount & Last Used: last used 2011 Smoking Status (MU): Heavy Every Day Tobacco Smoker Type: Cigarettes Amount Used/How Often: 1/2 PPD X 15 YEARS Length of Time of Smoking/Using Tobacco: 15 YEARS Have You Smoked in the Last Year: Yes When Did the Patient Quit Smoking/Using Tobacco: using chantix Household Exposure Type: Cigarettes - Immunization History Most Recent Tetanus Shot: Unknown Review of Systems All Other Systems Reviewed And Are Negative: Yes Constitutional: Positive: Fever. Negative: Chills, Fatigue Skin: Negative: Rash ENT: Positive: Sore Throat Respiratory: Negative: Cough Musculoskeletal: Negative: Myalgia Neurological/Mental Status: Positive: Headache Physical Exam Triage Information Reviewed: Yes Appearance: Other: - smells like smoke, disheveled but well appearing Vital Signs: Initial Vital Signs Temp 97.7 F 02/02/20 13:28 Pulse 72 02/02/20 13:28 Resp 14 02/02/20 13:28 BP 112/69 02/02/20 13:28 Pulse Ox 99 02/02/20 13:28 Eyes: Positive: Conjunctiva Clear ENT: Positive: Pharynx normal, TMs normal, Uvula midline Neck: Positive: Supple, Nontender, No Lymphadenopathy Respiratory Exam: Normal Cardiovascular Exam: Normal Neurological: Positive: Alert Skin: Negative: Rashes Flu Course/Dx - Course Course Of Treatment: RAPID FLU NEG. in a pt. who smokes. had viral uri today. vitals good. exam unremarkable. Viral - Differential Dx/Diagnosis Differential Diagnosis/HQI/PQRI: Influenza, Upper Respiratory Infection, Other Provider Diagnosis: URI (upper respiratory infection) Discharge ED - Sign-Out/Discharge Documenting (check all that apply): Patient Departure All imaging exams completed and their final reports reviewed: No Studies - Discharge Plan Condition: Good Disposition: HOME Prescriptions: Benzonatate CAP* [Tessalon 100 MG CAP*] 100 mg PO BID 7 Days #14 cap Patient Education Materials: Viral Syndrome (ED) Referrals: No Primary Care Phys,NOPCP [Primary Care Provider] - Additional Instructions: IF WORSENING PLEASE FOLLOW UP WITH YOUR PRIMARY CARE PROVIDER - Billing Disposition and Condition Condition: GOOD Disposition: Home
== END 2020-02-02 14:27 | disposition home or self-care (01) ==
LOC: UCCORT 12:12
DX: J06.9 Acute upper respiratory infection, unspecified (principal); F41.9 Anxiety disorder, unspecified; F32.9 Major depressive disorder, single episode, unspecified; F17.210 Nicotine dependence, cigarettes, uncomplicated; Z79.899 Other long term (current) drug therapy; Z88.2 Allergy status to sulfonamides; Z88.5 Allergy status to narcotic agent; Z88.6 Allergy status to analgesic agent
CPT/HCPCS: 99212; G0463